=== PATIENT | female | born 1960 | race Hispanic/Latino ===

== ENCOUNTER 2023-03-29 10:42 | Outpatient (CLI) | payer MEDICAID, SELFPAY ==
--- NOTE | ~2023-03-29 | XR_ITS ---
EXAM: XR hand RT min 3V DATE: 03/29/2023 11:12 HISTORY: PAIN IN RIGHT HAND, NO INJURY, CHRONIC . COMPARISON: None available. FINDINGS: Normal mineralization. No fracture or dislocation. No lytic or blastic lesion. Mild scatte red arthritic changes, typical of osteoarthritis, most notably in the DIP joints of the fingers, the interphalangeal joint of the thumb, the first MCP joint, and the trapeziometacarpal joint. No erosion or periosteal change. Soft tissues within normal limits. IMPRESSION: Mild polyarticular osteoarthritis. Reviewed, dictated and finalized at location K. DEVELOPER PROGRAMMER
--- NOTE | ~2023-03-29 | XR_ITS ---
XR knee LT 3V 03/29/2023 11:12 INDICATION: Left knee pain PROCEDURE: 3 views left knee COMPARISON: No prior studies for comparison. FINDINGS: Fracture, dislocation or subluxation is not identified. No joint effusion. The soft tissues appear within normal limits. No foreign bodies are identified. IMPRESSION: 1: NO ACUTE BONE OR JOINT ABNORMALITY IDENTIFIED. Reviewed, dictated and finalized at location L. [employer]
== END 2023-03-29 10:43 | disposition home or self-care (01) ==
PROVIDERS: PCP Physician Assistant; Visit Provider Physician Assistant
DX: M19.041 Primary osteoarthritis, right hand (principal); M25.562 Pain in left knee
CPT/HCPCS: 73130; 73562

== ENCOUNTER 2023-08-31 09:52 | Outpatient (CLI) | payer OTHER, SELFPAY ==
[2023-08-31 10:50] LABS: Cholesterol 208 mg/dL (0-200); HDL Direct 49 mg/dL; Triglycerides 103 mg/dL (<150)
[2023-08-31 11:00] LABS: LDL Cholesterol Direct 128 mg/dL
== END 2023-08-31 09:53 | disposition home or self-care (01) ==
PROVIDERS: PCP Physician Assistant; Visit Provider Internal Medicine Cardiovascular Disease
DX: E78.5 Hyperlipidemia, unspecified (principal)
CPT/HCPCS: 36415; 80061

== ENCOUNTER 2023-10-05 08:35 | Outpatient (CLI) | payer OTHER, SELFPAY ==
--- NOTE | 2023-10-05 08:38 | ECHO_ITS ---
Patient Info Name: Emmy Bautista Age: 62 years : 1960 Gender: Female Ht: 67 in Wt: 170 lbs BSA: 1.92 m2 HR: 64 bpm BP: 151 / 79 mmHg Technical Quality: Good Exam Date: 10/05/2023 8:56 AM Exam Location: Echo Lab Patient Status: Outpatient Admit Date: 10/05/2023 Staff Ordering Physician: Christos Montenegro DO Computer Support Specialist Instructor: Jameel Chance RDCS Attending Provider: Christos Montenegro DO Referring Physician: Lan SCHROEDER; Exam Type: CA echo doppler color flow Study Info Indications R06.09 - Other forms of dyspnea Complete two-dimensional, color flow and Doppler transthoracic echocardiogram is performed. Summary 1. Complete two-dimensional, color flow and Doppler transthoracic echocardiogram is performed. 2. Left ventricular chamber dimension is normal. 3. Left ventricular systolic function is normal, estimated at 60-65%. 4. The left ventricular diastolic function is normal. 5. E/e' 5 is not elevated. 6. Left atrial chamber dimension is mildly enlarged. 7. There is trace mitral valve regurgitation. 8. There is trace tricuspid valve regurgitation. 9. No pulmonary hypertension, estimated pulmonary arterial systolic pressure is 21 mmHg. Left Ventricle E/e' 5 is not elevated. Left ventricular chamber dimension is normal. Left ventricular systolic function is normal, estimated at 60-65%. The left ventricular diastolic function is normal. Right Ventricle Right ventricular systolic function is normal and with normal TAPSE 1.8 cm. Right ventricular chamber dimension is normal. Left Atria Left atrial chamber dimension is mildly enlarged. Right Atria Right atrial chamber dimension is normal. Aortic Valve The aortic valve is trileaflet. There is no aortic valve stenosis. There is no aortic valve regurgitation. Pulmonic Valve There is no pulmonic regurgitation. Mitral Valve There is no mitral valve stenosis. There is trace mitral valve regurgitation. Tricuspid Valve There is trace tricuspid valve regurgitation. No pulmonary hypertension, estimated pulmonary arterial systolic pressure is 21 mmHg. Pericardium/Pleural There is no pericardial effusion. Inferior Vena Cava Normal inferior vena cava with >50% collapse upon inspiration consistent with normal right atrial pressure, 5 mmHg. Aorta The aortic root size at the sinus of Valsalva is normal. Left Ventricular Outflow Tract Name Value Normal LVOT 2D LVOT Diameter 2.2 cm LVOT Doppler LVOT Peak Gradient 4 mmHg LVOT Mean Gradient 2 mmHg LVOT VTI 23 cm LVOT VTI/AV VTI Ratio 0.9 LVOT Stroke Volume 87 ml LVOT CO 5.4 l/min LVOT CI 2.8 l/min/m2 Pulmonic Valve Name Value Normal PV Doppler PV Peak Gradient 4 mmHg Mitral Valve
--- NOTE | 2023-10-05 09:05 | EST_ITS ---
Patient Info Name: Emmy Bautista Age: 62 years : 1960 Gender: Female Ht: 67 in Wt: 170 lbs BSA: 1.92 m2 HR: 59 bpm BP: 135 / 84 mmHg Heart Rhythm: Sinus Rhythm Exam Date: 10/05/2023 9:59 AM Exam Location: Echo Lab Patient Status: Outpatient Admit Date: 10/05/2023 Staff Ordering Physician: Christos Montenegro DO Attending Provider: Christos Montenegro DO Exercise Technologist: Maria [address] Exercise Physician: Christos Montenegro DO Exam Type: CA stress test treadmill Study Info Indications R06.09 - Other forms of dyspnea A treadmill exercise stress test was performed. Summary 1. 1. Negative Donn exercise stress test for ischemic ST changes by ECG criteria. 2. 2. Good functional capacity, achieving 8 METs of workload. 3. 3. Appropriate HR response to exercise. 4. 4. Appropriate HR recovery at 1 minute post exercise. 5. 5. No imaging with stress testing. 6. 6. Patient informed of the above results. Protocol: Donn Stress ECG Details Stage: REST Duration (min): 0 min : 56 sec Speed (mph): 0.0 Grade (%): 0 HR (bpm): 60 SBP (mmHg): 135 DBP (mmHg): 84 METS: --- Stage: REST Duration (min): 18 min : 33 sec Speed (mph): 0.0 Grade (%): 0 HR (bpm): 64 SBP (mmHg): 135 DBP (mmHg): 84 METS: --- Stage: STAGE 1 Duration (min): 1 min : 0 sec Speed (mph): 1.7 Grade (%): 10 HR (bpm): 89 SBP (mmHg): 135 DBP (mmHg): 84 METS: --- Stage: STAGE 1 Duration (min): 2 min : 0 sec Speed (mph): 1.7 Grade (%): 10 HR (bpm): 99 SBP (mmHg): 135 DBP (mmHg): 84 METS: --- Stage: STAGE 1 Duration (min): 3 min : 0 sec Speed (mph): 1.7 Grade (%): 10 HR (bpm): 100 SBP (mmHg): 171 DBP (mmHg): 71 METS: --- Stage: STAGE 2 Duration (min): 1 min : 0 sec Speed (mph): 2.5 Grade (%): 12 HR (bpm): 109 SBP (mmHg): 171 DBP (mmHg): 71 METS: --- Stage: STAGE 2 Duration (min): 2 min : 0 sec Speed (mph): 2.5 Grade (%): 12 HR (bpm): 114 SBP (mmHg): 185 DBP (mmHg): 64 METS: --- Stage: STAGE 2 Duration (min): 3 min : 0 sec Speed (mph): 2.5 Grade (%): 12 HR (bpm): 117 SBP (mmHg): 185 DBP (mmHg): 64 METS: --- Stage: STAGE 3 Duration (min): 0 min : 59 sec Speed (mph): 3.4 Grade (%): 14 HR (bpm): 135 SBP (mmHg): 184 DBP (mmHg): 70 METS: --- Stage: RECOVERY Duration (min): 1 min : 0 sec Speed (mph): 0.0 Grade (%): 0 HR (bpm): 109 SBP (mmHg): 184 DBP (mmHg): 70 METS: --- Stage: RECOVERY Duration (min): 2 min : 0 sec Speed (mph): 0.0 Grade (%): 0 HR (bpm): 85 SBP (mmHg): 184 DBP (mmHg): 70 METS: --- Stage: RECOVERY Duration (min): 3 min : 0 sec Speed (mph): 0.0 Grade (%): 0 HR (bpm): 75 SBP (mmHg): 163 DBP (mmHg): 80 METS: --- Stage: RECOVERY Duration (min): 3 min : 19 sec Speed (mph): 0.0 Grade (%): 0 HR (bpm): 81 SBP (mmHg): 163 DBP (mmHg): 80 METS:
== END 2023-10-05 08:36 | disposition home or self-care (01) ==
LOC: ANHCARD 08:36
PROVIDERS: PCP Physician Assistant; Visit Provider Internal Medicine Cardiovascular Disease
DX: R07.9 Chest pain, unspecified (principal)
CPT/HCPCS: 93017; 93306

== ENCOUNTER 2024-09-16 11:09 | Emergency (ER) | payer OTHER, SELFPAY ==
--- NOTE | ~2024-09-16 | CT_ITS ---
Non-contrast Head CT History: Vertigo Technique: Axial non-contrast imaging of the brain was performed. Dose reduction technique was used on this scan by utilizing automated exposure control and iterative reconstruction technique. The dose -length product (DLP) was 605.33 mGy-cm. Findings: There is no evidence of intracranial hemorrhage, mass lesion, or acute infarct. Brain par enchyma appears normal. The ventricles and subarachnoid spaces are normal in size. The calvarium ap pears normal. The visualized paranasal sinuses and mastoid air cells are clear. Impression: No significant abnormality seen. Reviewed, dictated and finalized at location . Impression: No significant abnormality seen.
--- NOTE | ~2024-09-16 | XR_ITS ---
Portable chest x-ray Comparison: None Clinical History: Dizziness Findings: Lungs are clear, without focal consolidation or pleural effusion. Cardiomediastinal silho uette is unremarkable. Bones and soft tissues are unremarkable. Impression: Normal chest. Reviewed, dictated and finalized at location . Impression: Normal chest.
--- OUTSIDE RECORDS SUMMARY | 2024-09-16 11:11 | XMS_ITS | Data Portability ---
Author Organization [facility] Jono Michele Address [address] [place] [address] Care Team Providers Care Buckle Inspector Name Role Phone MAKAYLAELIO RICHARDS Primary Care Provider [phone] Assessment No assessment recorded. Plan of Treatment Reminders Order Date Submit Date Provider Last Modified By Organization Details Last Modified Time Details Appointments None recorded . Lab HbA1c (hemoglo bin A1c), blood 2024 025 [facility], [address] [place] [address], [facility] [address], [place], [address], 5 11:27:46 CMP, serum or plasma 2024 025 mick [facility], [address] [place] [address], [address], [place], [address], 5 08:49:33 TSH + free T4, serum 2024 025 SHIRLENE [facility], [address] [place] [address], [facility] [address], [place], [address], 5 11:27:45 CMP, serum or plasma 2023 024 SHIRLENE VERONIKA, [address] [place] [address], [address], [place], [address], 4 23:07:41 albumin/ creatini ne, mass ratio, urine 2023 024 [facility], [address] [place] [address], [facility] [address], [place], [address], 4 08:29:56 HbA1c (hemoglo bin A1c), blood 2023 024 [facility], [address] [facility], [address], [place], [address], 4 08:29:59 TSH + free T4, serum 2023 024 [facility], [address] [facility], [address], [place], [address], 4 08:29:58 Referral neurolog ist referral 2024 025 [facility], [address] [place] [address] , [place] [address], [place], [address], 5 11:45:18 Procedures None recorded . Surgeries None recorded . Imaging MAMMO, screenin g, bilatera l 2024 025 [facility] ([facility]), [address] [place], [address], 5 12:28:49 Medication Orders losartan 100 mg tablet 2023 024 [facility], [facility] [place], [id number], 5 17:25:47 famotidi ne 20 mg tablet 2023 024 [facility], [facility] [place], [id number], 5 17:38:15 venlafax ine ER 75 mg capsule, extended release 24 hr 2023 024 [facility] [employer] [facility], [facility] [place], [id number], 5 16:11:14 levothyr oxine 75 mcg tablet 2023 024 [facility] [employer] [facility], [address] [place], [place], [id number], 11:39:29 Patient TargetsNo targets recorded. Patient Instructions Encounter Date Encounter Id Patient Instructions Last Modified By Organization Details Last Modified Time 07/25/2024 [id number] A healthy lifestyle: care instructions [email or web address] Not available 07/25/2024 17:08:10 Reason for Referral Neurologist Referral for Idi opathic peripheral neuropathy Referring Physician: Antony Davis, Podiatry, Encounter Date: 08/08/2024 Results Created Date Observation Date Name Description Value Unit Range Abnormal Flag Note LastModifiedBy Organization Detail LastModifiedTime 01/26/2001/27/2024 COMP. METAB OLIC PANEL (14) glucose 98 mg/dL 70-99 Not Available [facility] Department [address] [place], [address], 01/27/2024 23:07:41 01/26/2001/27/2024 COMP. METAB OLIC PANEL (14) BUN 16 mg/dL 8-27 Not Available [facility] Department [address] [place], [address], 01/27/2024 23:07:41 01/26/2001/27/2024 COMP. METAB OLIC PANEL (14) creatinine 0.71 mg/dL 0.76-1 .27 below low normal Not Available [facility] Department [address] [place], [address], 01/27/2024 23:07:41 01/26/2001/27/2024 COMP. METAB OLIC PANEL (14) eGFR 96 >=60 Units for eGFR value s are mL/mi n/1.7 3 The eGFR Calcu latio n has not been valid ated for patie nts under the age of 18. If test resul ts are displ ayed for a patie nt under the age of 18, disre manas that value . Not Available [facility] Department [address] [place] [address], [address], 01/27/2024 23:07:41 01/26/2001/27/2024 COMP. METAB OLIC PANEL (14) BUN/creatini ne ratio 23 10-28 Not Available [facility] Department [address] [place], [address], 01/27/2024 23:07:41 01/26/2001/27/2024 COMP. METAB OLIC PANEL (14) sodium 140 mmol/ L 134-14 4 Not Available [facility] Department [address] [place] [address], [address], 01/27/2024 23:07:41 01/26/2001/27/2024 COMP. METAB OLIC PANEL (14) potassium 5.2 mmol/ L 3.5-5. 2 Not Available [facility] Department [address] [place] [address], [address], 01/27/2024 23:07:41 01/26/2001/27/2024 COMP. METAB OLIC PANEL (14) chloride 102 mmol/ L 96-106 Not Available [facility] Department [address] [place] [address], [address], 01/27/2024 23:07:41 01/26/2001/27/2024 COMP. METAB OLIC PANEL (14) carbon dioxide, total 28 mmol/ L 20-29 Not Available [facility] Department [address] [place], [address], 01/27/2024 23:07:41 01/26/2001/27/2024 COMP. METAB OLIC PANEL (14) calcium 9.6 mg/dL 8.7-10 .3 Not Available [facility] Department [address] [place] [address], [address], 01/27/2024 23:07:41 01/26/2001/27/2024 COMP. METAB OLIC PANEL (14) protein, total 7.2 g/dL 6.0-8. 5 Not Available [facility] Department [address] [place] [address], [address], 01/27/2024 23:07:41 01/26/2001/27/2024 COMP. METAB OLIC PANEL (14) albumin 4.5 g/dL 3.8-4. 8 Not Available [facility] Department [address] [place], [address], 01/27/2024 23:07:41 01/26/2001/27/2024 COMP. METAB OLIC PANEL (14) globulin, total 2.7 g/dL 1.5-4. 5 Not Available [facility] Department [address] [place] [address], [address], 01/27/2024 23:07:41 01/26/2001/27/2024 COMP. METAB OLIC PANEL (14) A/G ratio 1.6 1.2-2. 2 Not Available [facility] Department [address] [place], [address], 01/27/2024 23:07:41 01/26/2001/27/2024 COMP. METAB OLIC PANEL (14) bilirubin, total 0.4 mg/dL 0.0-1. 2 Not Available [facility] Department [address] [place], [address], 01/27/2024 23:07:41 01/26/2001/27/2024 COMP. METAB OLIC PANEL (14) alkaline phosphatase 77 IU/L 44-121 Not Available [facility] Department [address] [place], [address], 01/27/2024 23:07:41 01/26/2001/27/2024 COMP. METAB OLIC PANEL (14) AST (SGOT) 21 IU/L 0-40 Not Available [facility] Department [address] [place], [address], 01/27/2024 23:07:41 01/26/2001/27/2024 COMP. METAB OLIC PANEL (14) ALT (SGPT) 21 IU/L 0-32 Not Available [facility] Department [address] [place], [address], 01/27/2024 23:07:41 01/26/2001/28/2024 ALBUM IN/CR EATIN INE RATIO ,URIN E creatinine, urine 28.6 mg/dL notest ab. Not Available [facility] ([facility]) [address] [place], [address], 01/28/2024 08:29:56 01/26/2001/28/2024 ALBUM IN/CR EATIN INE RATIO ,URIN E albumin, urine <3.0 ug/mL notest ab. Not Available [facility] ([facility]) [address] [place], [address], 01/28/2024 08:29:56 01/26/2001/28/2024 ALBUM IN/CR EATIN INE RATIO ,URIN E alb/creat ratio <10 Jackie l: 0 - 29 Moder ately incre ased: 30 - 300 Sever gail incre ased: >300 Not Available [facility] ([facility]) [address] [place], [address], 01/28/2024 08:29:56 01/26/2001/28/2024 TSH+F REE T4 TSH 1.290 uIU/m L 0.450- 4.500 Not Available [facility] ([facility]) [address] [place], [address], 01/28/2024 08:29:58 01/26/2001/28/2024 TSH+F REE T4 T4,free(dire ct) 1.19 NG/dL 0.82-1 .77 Not Available [facility] ([facility]) [address] [place], [address], 01/28/2024 08:29:58 01/26/2001/28/2024 HEMOG LOBIN A1C hemoglobin A1C 5.9 % 4.8-5. 6 above high normal Predi abete s: 5.7 - 6.4 Diabe bryn: >6.4 Glyce ankur contr ol for adult s with diabe bryn: <7.0 Not Available [facility] ([facility]) [address] [place], [address], 01/28/2024 08:29:59 07/26/1907/27/2024 TSH+F REE T4 TSH 0.985 uIU/m L 0.450- 4.500 Not Available [facility] ([facility]) [address] [place], [address], 07/27/2024 11:27:45 07/26/19 25 07/27/2024 TSH+F REE T4 T4,free(dire ct) 1.13 NG/dL 0.82-1 .77 Not Available [facility] ([facility]) [address] [place], [address], 07/27/2024 11:27:45 07/26/1907/27/2024 HEMOG LOBIN A1C hemoglobin A1C - % Test not perfo rmed. No laven cecilia top tube submi tted. Predi abete s: 5.7 - 6.4 Diabe bryn: >6.4 Glyce ankur contr ol for adult s with diabe bryn: <7.0 Not Available [facility] ([facility]) [address] [place], [address], 07/27/2024 11:27:46 08/14/19 25 08/10/2024 MAMMO , scree pete, bilat eral No observ ation record ed. [facility] Central Scheduling [address], [place], [address], 08/22/2024 12:28:49 08/14/19 25 08/10/2024 MAMMO , scree pete, tomos ynthe sis, bilat eral No observ ation record ed. [email or web address] - Central Scheduling [address], [place], [address], 08/14/2024 16:07:22 Result Notes None recorded. Problems Name Problem SNOMED Code Status Onset Date Resolution Date Notes Provider Name and Address Organization Details Recorded Time Body mass index 25-29 - overweig ht 970370225 Active 2016 TARIK [place], [place] - [facility] 12:06:26 Verruca vulgaris 35278504 Active 2016 TARIK [place] [facility] 12:06:26 Snoring 27509403 Active TARIK [place] [facility] 12:06:26 Nasal congesti on 13480052 Completed 201710/27/2018 PRADEEP FRANCIS Attn: Maribeljuan carlos servando,[address] [facility], [place], [address], [facility] - SI 9 14:57:29 Benign paroxysm al position al vertigo 646179985 Active 2017 TARIK [place], [place] [facility] 12:06:26 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 Tx with levothyr oxine 50 mcg, TSH mildly elevated 11/06/18, need to recheck again in 6 months TARIK [place] [facility] 12:06:26 Mean corpuscu lar volume below referenc e range 274806684 Active 2019 TARIK [place] [facility] 12:06:26 Beta thalasse lucien trait 169908475 Active 2020 TARIK [place], [place] [facility] 12:06:26 [facility] 376294478 Active 2020 Val Tao [place] null, [place] [facility] 12:06:26 Bruxism 179070537 Active 2021 PRADEEP HUGO Attn: Alvina al,[address] [facility], [place], [address], [place] - [facility] 2 17:24:57 Grinding teeth 14888596 Active 2021 PRADEEP HUGO Attn: Alvina servando,[address] [facility], [place], [address], [place] [facility] 17:24:57 Pain of bilatera l hands 37076926091 653586 Active 2021 PRADEEP HUGO Attn: Alvina al,[address] [facility], [place], [place], [address] [place] [address] 2, [place] [facility] 17:25:52 Anxiety 56135014 Active 2021 PRADEEP HUGO Attn: Alvina al,[address] [facility], [place], [address] [place] [address] 2, [place] [facility] 17:25:54 Menopaus e present 713329526 Active 2021 PRADEEP HUGO Attn: Alvina al,[address] [facility], [place], [address] [place] [address] 2, [place] [facility] 17:25:56 Essentia l hyperten sadiq 93102940 Active 2021 PRADEEP HUGO Attn: Alvina al,[address] [facility], [place], [address] [place] [address] 2, [place] - [facility] 2 17:26:00 Colonosc opy declined 64429475703 9100 Active 2021 PRADEEP HUGO Attn: Alvina al,[address] [facility], [place], [address] [place] [address] 2, [place] - [facility] 2 17:26:04 Smoker 52662801 Active 2022 PRADEEP HUGO Attn: Alvina al,[address] [facility], [place], [address] [place] [address] 2, [place] - [facility] 3 16:23:34 Nocturia 917754324 Active 2022 PRADEEP HUGO Attn: Alvina al,[address] [facility], [place], [address] [place] [address] 2, [place] - [facility] 3 16:24:28 Pain of left knee joint 70622302994 4107 Active 2023 PRADEEP HUGO Attn: Alvina al,[address] [facility], [place], [address] [place] [address] 2, [place] - [facility] 4 15:32:20 Overweig ht 488666115 Active 2023 PRADEEP HUGO Attn: Alvina al,[address] [facility], [place], [address], [place] [facility] 4 15:32:34 Prediabe bryn 202716811 Active 2023 PRADEEP HUGO Attn: Alvina al,[address] [facility], [place], [address], [place] [facility] 4 08:55:30 Fatigue 65751210 Active Val Tao [place] [facility] 1 12:06:26 Vitamin D deficien cy 78856190 Active Val Tao [place] [facility] 1 12:06:25 Full blood count outside referenc e range 600135732 Completed 10/27/2018 PRADEEP FRANCIS Attn: Alvina al,[address] [place], [address], [place] [facility] 9 14:57:03 Hyperthy roidism 30758705 Active Currentl y hypo and txed by endo Val Tao [place], [place] [facility] 1 12:06:26 Depressi ve disorder 54038408 Active Shanonvincentnorberto TARIK Tao nuvia, [facility] SI 12:06:26 Hyperlip idemia 58331987 Active Controll ed by lifestyl e, no need for med currentl y Val Aislinn TARIK nuvia, [facility] SI 12:06:26 Gastroes ophageal reflux disease 356878187 Active Shanonvincentnorberto TARIK Tao nuvia, [facility] 12:06:26 Tobacco dependen ce syndrome 42526369 Active 2016 Shanonvincentnorberto TARIK Tao nuvia, [facility] 12:06:25 Problem Notes None recorded. Procedures Surgical History Date Name Laterality Status Provider Name and Address Organization Details Recorded Time 024 Nail Debridement completed FELICE RAI DPM [address] [place], [address], [facility] 09/15/2023 17:26:07 022 Date of Last Pap Smear completed Leilani Meraz MA [facility] 02/23/2022 10:00:48 022 Date of Last Mammogram completed Leilani Meraz MA [facility] 02/23/2022 10:01:12 017 Most Recent Mammogram completed Marcella Arredondo MA [facility] 11/25/2017 09:52:39 Cholecystectomy completed Radha Mcgrath MA [facility] 02/18/2016 16:30:48 Cholecystectomy completed Edinson Rose [place] - [facility] 03/19/2014 15:09:10 Other completed Marcella Arredondo MA [place] - [facility] 11/25 09:58:21 Imaging Results None recorded. Procedure Notes None recorded. Medical Equipment None Reported. Allergies No known drug allergies Medications Name Sig Start Date Stop Date Status Note LastModified by Organization Details LastModified Time bupropion HCl SR 150 mg tablet,12 hr sustained -release TAKE ONE TABLET BY MOUTH TWICE DAILY 03/24 completed Not Available Not Available Not Available venlafaxi ne ER 37.5 mg capsule,e xtended release 24 hr TAKE 1 CAPSULE BY MOUTH DAILY 02/18 completed Not Available Not Available Not Available venlafaxi ne ER 75 mg capsule,e xtended release 24 hr TAKE ONE CAPSULE BY MOUTH ONCE EVERY DAY FOR ANXIETY active Not Available Not Available No t Available levothyro xine 75 mcg tablet TAKE 1 TABLET by mouth DAILY IN THE MORNING BEFORE BREAKFAS T FOR THYROID. active Not Available Not Available No t Available ciclopiro x 8 % topical solution APPLY TO THE AFFECTED AREA(S) DAILY AT BEDTIME OR ocho horas antes de dipak 09/16 completed Not Available Not Available Not Available levothyro xine 100 mcg tablet Take 1 tablet every day by oral route in the morning. 2014 active Not Available Not Available Not Avai lable famotidin e 20 mg tablet TAKE ONE TABLET BY MOUTH TWICE DAILY EVERY MORNING AND EVERY EVENING FOR STOMACH active Not Available Not Available No t Available ciproflox acin 0.3 % eye drops INSTILL 1 DROP INTO LEFT EYE 4 TIMES DAILY FOR 5 DAYS active Not Available Not Available No t Available amitripty line 10 mg tablet Take 1 tablet every day by oral route at bedtime. 08/19 completed Not Available Not Available Not Available meclizine 25 mg tablet Take 1 tablet 3 times a day by oral route as needed. 08/08 completed Not Available Not Available Not Available levothyro xine 50 mcg tablet TAKE 1 TABLET BY MOUTH EVERY DAY fasting 10/22 completed Not Available Not Available Not Available erythromy beatris 5 mg/gram (0.5 %) eye ointment APPLY 1/4 INCH RIBBON OF OINTMENT INTO LOWER LID OF LEFT EYE 4 TIMES DAILY FOR 5 DAYS active Not Available Not Available No t Available levothyro xine 125 mcg tablet Take 1 tablet every day by oral route. active Rx by Dr. Lucero endo Not Available Not Available Not Available ranitidin e 150 mg tablet Take 1 tablet twice a day by oral route as needed. 04/13 completed Not Available Not Available Not Available losartan 25 mg tablet TAKE ONE TABLET BY MOUTH EVERY MORNING 05/06 completed Not Available Not Available Not Available gabapenti n 300 mg capsule TAKE ONE CAPSULE BY MOUTH THREE TIMES DAILY, IN THE MORNING, AT MID-DAY & AT BEDTIME FOR PAIN MANAGEME NT active Not Available Not Available No t Available omeprazol e 20 mg capsule,d elayed release TAKE 1 CAPSULE BY MOUTH ONCE DAILY DIRECTED 08/20 completed Not Available Not Available Not Available lisinopri l 5 mg tablet TAKE 1 TABLET BY MOUTH ONCE DAILY IN THE MORNING 09/19 completed Dry cough Not Available Not Available Not Available gabapenti n 100 mg capsule Take 1 capsule 3 times a day by oral route as needed for 30 days. 01/10 completed Not Available Not Available Not Available ergocalci ferol (vitamin D2) 1,250 mcg (50,000 unit) capsule Take 1 capsule every week by oral route. 01/23 completed Not Available Not Available Not Available losartan 100 mg tablet TAKE ONE TABLET BY MOUTH EVERY MORNING FOR BLOOD PRESSURE active Not Available Not Available No t Available fluoxetin e 20 mg capsule Take 1 capsule every day by oral route in the morning for 30 days. 04/13 completed Not Available Not Available Not Available fluticaso ne propionat e 50 mcg/actua tion nasal spray,salvador pension INSTILL 1 SPRAY IN EACH NOSTRIL ONCE DAILY AT BEDTIME FOR ALLERGIE S active Not Available Not Available No t Available Vitamin B-12 1,000 mcg tablet Take 1 tablet every day by oral route around the clock for 30 days. 08/08 completed Not Available Not Available Not Available magnesium active Not Available Not Loraine ilable Not Available calcium 600 mg (as carbonate )-vitamin D3 10 mcg (400 unit) tablet Take 1 tablet by oral route for 30 days. 2021 active Not Available Not Available Not Avai lable Chantix Continuin g Month Box 1 mg tablet Take 1 tablet twice a day by oral route. 11/25 completed Not Available Not Available Not Available Chantix Starting Month Box 0.5 mg (11)-1 mg (42) tablets in dose pack Take as prescrib ed on package 11/25 completed Not Available Not Available Not Available bupropion HCl 150 mg tablet,12 hr sustained -release( smoking deterrent ) Take 1 tablet twice a day by oral route for 90 days. 03/24 completed Not Available Not Available Not Available Vitals Date Recorded Body height Body mass index (BMI) Body weight Heart rate Body temperature Systolic blood pressure Diastolic blood pressure Provider Name and Address Organization Details Last Updated DateTime 5 172.09 cm 26.2 kg/m2 44565.6 5 g 73 /min 97.8 [degF] 146 mm[Hg] 80 mm[Hg] Silvana Young MA [facility] 5 15:56:05 Date Recorded Body height Body mass index (BMI) Body weight Heart rate Body temperature Systolic blood pressure Diastolic blood pressure Provider Name and Address Organization Details Last Updated DateTime 5 172.09 cm 25.2 kg/m2 81111.5 9 g 74 /min 98.4 [degF] 124 mm[Hg] 84 mm[Hg] Silvana Young MA [facility] 5 16:49:29 Date Recorded Body height Body mass index (BMI) Body weight Heart rate Oxygen saturation Oxygen saturation in Arterial blood by Pulse oximetry Systolic blood pressure Diastolic blood pressure Provider Name and Address Organization Details Last Updated DateTime 5 172.09 cm 26.5 kg/m2 34543.4 8 g 79 /min 98 % 98 % 128 mm[Hg] 70 mm[Hg] Melita Casper MA [facility] 5 16:55:09 Date Recorded Body height Body mass index (BMI) Body weight Heart rate Body temperature Systolic blood pressure Diastolic blood pressure Provider Name and Address Organization Details Last Updated DateTime 5 172.09 cm 26.1 kg/m2 71593.7 8 g 89 /min 98.3 [degF] 130 mm[Hg] 72 mm[Hg] Silvana Young MA [facility] 5 16:17:45 Date Recorded Systolic blood pressure Diastolic blood pressure Provider Name and Address Organization Details Last Updated DateTime 01/26/2024 132 mm[Hg] 76 mm[Hg] PRADEEP HUGO Attn: Accounting,[address] [place], [address], [facility] 01/26/2024 17:14:35 Date Recorded Body height Body mass index (BMI) Body weight Heart rate Oxygen saturation Oxygen saturation in Arterial blood by Pulse oximetry Provider Name and Address Organization Details Last Updated DateTime 4 172.09 cm 26.5 kg/m2 98158.4 8 g 87 /min 96 % 96 % Italia Sánchez MA [facility] 16:57:42 Social History Question Answer Notes LastModified by Organizat ion Details LastModified Time Tobacco Smoking Status Current Every Day Smoker Around 6 ciggs a day Melita Casper MA [facility], [facility] 01/23/2021 15:54:49 Do You Have An Advance Directive? No Information not available 02/18/2016 Is Blood Transfusion Acceptable In An Emergency? Yes Information not available 11/25/2017 What Is Your Level Of Caffeine Consumption? Occasional Information not available 03/19/2014 How Much Tobacco Do You Chew? None Information not available 02/18/2016 In The 14 Days Before Symptom Onset, Have You Had Close Contact With A Laboratory-confir med COVID-19 While That Case Was Ill? No Information not available 08/08/2020 In The 14 Days Before Symptom Onset, Have You Had Close Contact With A Person Who Is Under Investigation For COVID-19 While That Person Was Ill? No Information not available 08/08/2020 Have You Been To An Area Known To Be High Risk For COVID-19? No Information not available 08/08/2020 What Type Of Diet Are You Following? REGULAR Information not available 11/25/2017 Which Illicit Or Recreational Drugs Have You Used? None Information not available 11/25/2017 Education 9 Information no t available 11/25/2017 Hard Of Hearing Or Deaf In One Or Both Ears? No Information not available 02/18/2016 Legally Blind In One Or Both Eyes? No Information no t available 02/18/2016 Live Alone Or With Others? With Others Information not available 03/19/2014 Do You Have A High School Diploma Or Higher Education? Yes Information not available 08/08/2020 Do You Sometimes Have To Miss Your Medical Appointments Due To Difficult Getting Transportation? No Information not available 08/08/2020 Do You Feel Unfairly Treated Due To Things Such As Race, Age, Gender, Disability Or Some Other Reason? No Information not available 08/08/2020 Do You Feel Physically And Emotionally Safe While Living At Home? Yes Information not available 08/08/2020 Do You Feel Physically And Emotionally Safe In Your Neighborhood Or Other Public Places? Yes Information not available 08/08/2020 What Was The Date Of Your Most Recent Tobacco Screening? 08/08/2024 Information not available 08/08/2024 How Many Children Do You Have? 3 [email or web address] Information not available 04/23/2015 Performs Monthly Self-breast Exam? No Information no t available 11/25/2017 Do You Use Protection During Sex? No Information not available 11/25/2017 What Is Your Relationship Status? Information not available 11/25/2017 Seat Belts Used Routinely Yes Information not available 02/18/2016 Are You Sexually Active? Yes Information not available 11/25/2017 Smoke Alarm In Home Yes Information not available 02/18/2016 Do You Have Smoke And Carbon Monoxide Detectors In Your Home? Yes Information not available 07/03/2021 At What Age Did You Start Smoking Tobacco? 16 Information not available 03/19/2014 Are You Passively Exposed To Smoke? Yes Information no t available 02/18/2016 How Much Tobacco Do You Smoke? 1 PPW Information not available 08/08/2020 General Stress Level Low Information not available 02/18/2016 Do You Use Sunscreen Routinely? No Information not available 02/18/2016 Has Tobacco Cessation Counseling Been Provided? Yes [email or web address] Information not available 10/27/2018 On What Date Was Tobacco Cessation Counseling Provided? 08/08/2024 Information not available 08/08/2024 Sex: Female Functional Status Question Answer Note LastModified by Organizat ion Details LastModified Time Do you use any illicit or recreational drugs? No Information not available 07/03/2021 What is your level of alcohol consumption? None Information not available 04/17/2021 Are you currently employed? Yes Information not available 08/08/2020 Are you able to care for yourself? Yes Information n ot available 03/19/2014 What is your occupation? [employer] Information not available 11/25/2017 What is your exercise level? None Information not available 11/25/2017 Mental Status None recorded. Family History Relationship Description Onset Age of this Age Resolved Age Notes LastModified by Organization Details LastModified Time Mother Diabetes mellitus [email or web address] Not available 2015 16:34:32 Mother Essential hypertension Not available 16:34:32 Sister Diabetes mellitus Not available 2015 16:34:32 Medical History Condition Response Other N Atrial Fibrillation N High Blood Pressure N Breast Cancer N Lung Disease N Depression Y COPD N Blood Clots N Breast Problem N Anesthesia Complications N Headaches/Migraines N Anxiety Disorder N Muscle, Joint, or Bone Problems N Polyps N Infertility N Acid Reflux (GERD) Y Cancer N Endometriosis N High Cholesterol Y Liver Disease N Headaches Y Kidney or Bladder Problems N Thyroid Problems N GI Problems N Acne N Eating Disorder N Anemia Y Heart Attack (CA) N Ovarian Cancer N Diabetes N Blood Transfusions N Seizures/Epilepsy N Abuse/Domestic Violence N Asthma N Hepatitis N Heart Disease N Pre-Eclampsia N Osteoporosis N Heart Failure N Gynecological History Statement/Question Response Date of Last Mammogram 11/06/2021 Date of LMP STIs/STDs N HPV Vaccine N Most Recent Mammogram 07/09/2016 Age at Menarche 13 Current Control Method Menopause Age at First Child 20 If Post Menopausal, Age at Menopause 49 Sexually Active? Y Menses Monthly No Date of Last Pap Smear 11/09/2021 Sexual Problems? N LMP Unknown Obstetrics History GPAL:G 4 P 3 0 1 3 Type Value Multiple Births 0 Full Term 3 Induced 0 Spontaneous 1 Premature 0 Living 3 Ectopics 0 Total 4 Immunizations Vaccine Type Date Status Note Provider Anderson bhatt and Address Organization Details Recorded Time COVID-19, mRNA, LNP-S, PF, 30 mcg/0.3 mL dose 1 completed Melita Casper [place] null, [place] - [facility] 08/17/2021 10:21:44 COVID-19, mRNA, LNP-S, PF, 30 mcg/0.3 mL dose 1 completed Melita Casper [place], [place] [facility] 08/17/2021 10:21:51 COVID-19, mRNA, LNP-S, PF, 30 mcg/0.3 mL dose 2 completed Melita Casper [place], [place] [facility] 08/17/2021 10:22:04 Pneumococcal conjugate PCV20, polysaccharide CPS804 conjugate, adjuvant, PF 5 completed Latasha Woo MA null, [place] - [facility] 07/25/2024 17:20:58 Past Encounters Encounter ID Performer Location Encounter Start Date Encounter Closed Date Diagnosis/Indication Diagnosis SNOMED-CT Code Diagnosis ICD10 Code Diagnosis Note [id number] [address] [place] [address] 03/19/2014 14:56:39 03/20/2014 11:45:22 Full blood count outside reference range [id number] I suspect this is related to thyroid disease. Will continue to monitor. Hyperthyroidism 98554262 She is to contact her endo to see if she needs adjustment to medication . Depressive disorder 96398915 Provide reassuranc e that I suspect her symptoms are related to both her thyroid condition and her family stress. I believe the Amitriptyl ine will help with the symptoms she is experienci ng. Gastroesop hageal reflux disease [id number] CHELSIE Hairston [address] [place] [address] 04/30/2014 13:47:41 04/30/2014 14:28:36 Hyperthyroidism 83503209 She is to contact her endo to see if she needs adjustment to medication . Gastroesop hageal reflux disease 995955569 Depressive disorder 98336324 Snoring [id number] MD Mer Alonso [address] [place] [address] 07/02/2014 16:28:28 07/02/2014 17:45:55 Gastroesophageal reflux disease 526287233 Depressive disorder 57672903 Hyperthyroidism 92003716 Our staff spoke with endocrinol ogist's office to verify POC. Verified that the last dose they had rxed was 112 mcg. Endocrinol ogist had left for the day, so we were given permission to decrease the dose and forward communicat ion to them. [id number] Primitivo Garza MD [place] [facility] [address] [place] [address] 08/20/2014 16:14:26 08/20/2014 16:54:42 Gastroesophageal reflux disease 877032237 Depressive disorder 22681069 Hyperthyroidism 29306755 Has an order from Dr. Lucero for TSH and T4 - will check today [id number] MD Kaylin Nielsen (Adult Med) [address] [place] [phone] 10/17/2014 15:48:48 10/17/2014 16:29:39 Hyperthyroidism 74980198 Has an order from Dr. Lucero for TSH and T4 - will check today Fatigue 35794023 Adult heal th examination [id number] MD Kaylin Nielsen (Adult Med) [address] [place] [id number] 12/11/2014 16:05:27 2014 11:33:54 Hyperthyroidism 52601186 Will check T4 and TSH today Spoke with patient that I would like Dr. Lucero to continue to manage her thyroid until it becomes stable - at that point I do not mind prescribin g the medication s if it is easier for her but I need her thyroid to be stable and no medication adjustment s occurring for 6 months before that is an option Full blood count outside reference range 556869475 [id number] MD Kaylin Nielsen (Adult Med) [address] [place] [address] 02/12/2015 15:59:14 02/13/2015 11:20:29 Hyperthyroidism 14547773 E05.90 Will check T4 and TSH today If thyroid stable will prescribe levothyrox ine. Discussed if not or if anything changes for her thyroid in the future I will have to go back to Dr. Lucero - she states that she was given the ok to have me prescribe the levothyrox ine [id number] MD Kaylin Nielsen (Adult Med) [address] [place] [address] 04/23/2015 09:04:27 04/23/2015 10:42:09 Gynecologic examination 70752431 Z01.411 Discussed the cervical protrusion with Dr. Mancia - will wait on pap smear results and then refer to Dr. Mancia for f/u - states that it is likely a cervical polyp Screening for malignant neoplasm of breast 950610212 Z12.39 Appointmen t schedule for next week [id number] [facility] [address] [place] [address] 05/28/2015 16:09:37 05/28/2015 16:57:13 Depressive disorder 65341857 F32.9 Restart amytriptyl ine Hyperthyroidism 82402611 E05.90 WIll give her one month today and she will RTC in one week to check thyroid Gastroesop hageal reflux disease 139372733 K21.9 [id number] Allyson Obando MD [facility] (Adult Med) [address] [place] [id number] 08/27/2015 15:48:05 08/27/2015 16:39:52 Hyperthyroidism 85372681 E05.90 Gastroesop hageal reflux disease 901478895 K21.9 Depressive disorder 3548 9007 F32.9 Continue amytriptyl ine Full blood count outside reference range 539009016 R79.9 Vitamin D deficiency 347 92685 E55.9 [id number] Allyson Obando MD [facility] (Adult Med) [address] [place] [address] 11/26/2015 15:47:57 11/26/2015 17:41:38 Hyperthyroidism 66982780 E05.90 Will recheck thyroid levels today Depending up levels will adjust medication or refer back to endo Gastroesop hageal reflux disease 639392043 K21.9 continue ranitidine Depressive disorder 3548 9007 F32.9 Continue amytriptyl ine PRN Full blood count outside reference range 786098234 R79.9 Vitamin D deficiency 347 63180 E55.9 [id number] [facility] [address] [place] [address] 02/18/2016 16:13:59 02/18/2016 16:58:12 Hyperthyroidism 18358280 E05.90 Currently hypoWill recheck thyroid levels today Depending up levels will adjust medication or refer back to endo If WNL, RTC 6 months Screening for malignant neoplasm of colon 360944920 Z12.11 Patient advised to complete in 04/2016 Vitamin D deficiency 347 43560 E55.9 WNL at last check Gastroesop hageal reflux disease 044307247 K21.9 continue ranitidine Depressive disorder 3548 9007 F32.9 Continue amytriptyl ine PRN [id number] APOLINAR Samuels NP [facility] [address] [place] [address] 07/02/2016 14:32:14 07/05/2016 09:34:53 Screening for malignant neoplasm of breast 048361261 Z12.31 Breast exam negative. Discussed self breast exams monthly. Order for bilateral screening mammogram given to patient. F/u as needed. [id number] MD Kaylin Hastings (Adult Med) [address] [place] [address] 08/19/2016 16:26:21 08/19/2016 18:00:33 Hyperthyroidism 47821768 E05.90 Currently hypoWill recheck thyroid levels todayDepen ding up levels will adjust medication or refer back to endo If WNL, RTC 6 months Patient advised to use Eucerin cream for dry skin - or something similar that is non-fragra nce Tobacco de pendence syndrome 79025988 F17.290 Will initiate wellbutrin 150mg BIDEncoura charly to quit smoking in her car and house first Vitamin D deficiency 347 32196 E55.9 WNL at last check Depressive disorder 3548 9007 F32.9 No screen time within an hour of bedNo caffeine close to bed timeTalked about good sleep hygeine and going to bed at the same time every night and waking up at the same time every morningFin d calming activies to do at night like crafting, reading, meditation [id number] MD Kaylin Amanda (Adult Med) [address] [place] [address] 03/08/2017 15:51:56 03/09/2017 09:35:21 Hyperthyroidism 62109573 E05.90 Currently hypoWill recheck thyroid levels todayDepen ding up levels will adjust medication or refer back to endo If WNL, RTC 6 months Patient advised to use Eucerin cream for dry skin - or something similar that is non-fragra nce Tobacco de pendence syndrome 39860549 F17.200 Gastroesop hageal reflux disease 191539674 K21.9 continue ranitidine Vitamin D deficiency 347 97686 E55.9 WNL at last check Hyperlipidemia 06702348 E78.2 WIll recheck at next visit Body mass index 25-29 - overweight 827417168 Z68.26 Advised 30 minutes of exercise 5 days/week Advised to not drink her calories Advised 3 balanced meals/day with plenty of fruits and vegetables Will check fasting labs at next visit Verruca vulgaris 7252301 3 B07.9 Advised to try OTC wart remover, we do not have cryofreeze in office and no dermatolog y to refer herRTC if no improvemen t [id number] MD Kaylin Amanda ([facility]) [address] [place] [phone] 09/09/2017 09:25:03 09/12/2017 12:06:10 Hyperthyroidism 29162769 E05.90 Will recheck thyroid levels todayIf WNL, RTC 6 months Gastroesop hageal reflux disease 815774292 K21.9 continue ranitidine Advised to stay away from spicy and greasy foodsAdvis ed to stay away from fatty foodsDo not eat within 2 hours of going to bedStay sitting up after mealsNo smoking Benign par oxysmal positional vertigo 391464226 H81.13 Try OTC meclazine. PRNInforma tion on mandy maneuvers provided. Body mass index 25-29 - overweight 489882183 Z68.26 Advised 30 minutes of exercise 5 days/week Advised to not drink her calories Advised 3 balanced meals/day with plenty of fruits and vegetables Will check fasting labs at next visit Depressive disorder 4018 9007 F32.9 No screen time within an hour of bedNo caffeine close to bed timeTalked about good sleep hygeine and going to bed at the same time every night and waking up at the same time every morningFin d calming activies to do at night like crafting, reading, meditation Patient declined counseling and medication at this time Adult heal th examination 023743857 Z00.01 Vitamin D deficiency 347 20507 E55.9 WNL at last check Hyperlipidemia 35056482 E78.2 WIll recheck at next visit Tobacco de pendence syndrome 24037062 F17.200 Wants to quit. Rx fo Chantix given - advised if she develops severe depressive sx's, SI/HI to stop medication imediately and contact office Screening for malignant neoplasm of colon 697062919 Z12.11 Nasal congestion 8180241 0 R09.81 [id number] MD Kaylin [facility] ([facility]) [address] [place] [address] 11/25/2017 09:36:52 11/25/2017 10:53:13 Screening mammography 78912061 Z12.31 [id number] MD Kaylin [facility] (Adult Med) [address] [place] [address] 0 04/21/2018 10:55:45 04/25/2018 11:00:06 Adult health examination 760649263 Z00.01 Hyperthyroidism 48507315 E05.90 Will recheck thyroid levels todayIf WNL, RTC 6 months Gastroesop hageal reflux disease 521247715 K21.9 continue ranitidine Advised to stay away from spicy and greasy foodsAdvis ed to stay away from fatty foodsDo not eat within 2 hours of going to bedStay sitting up after mealsNo smoking. still has medication on hand. Body mass index 25-29 - overweight 891806233 Z68.26 Advised 30 minutes of exercise 5 days/week Advised to not drink her calories Advised 3 balanced meals/day with plenty of fruits and vegetables Will check fasting labs at next visit Tobacco de pendence syndrome 84576739 F17.200 Wants to quit. Rx fo Chantix given -stopped medication because it make her feel bad. [id number] [facility] (Adult Med) [address] [place] [address] 0 10/27/2018 14:39:46 10/30/2018 09:00:18 Body mass index 25-29 - overweight 627499156 Z68.26 -Discussed lifestyle modificati ons including 150 minutes moderate intensity exercise per week, restrictin g intake of fast/proce ssed foods, sweets, sugary beverages. Gastroesop hageal reflux disease 853737125 K21.9 Hyperthyroidism 58583159 E05.90 Vitamin D deficiency 347 67261 E55.9 Adult heal th examination 401502467 Z00.00 Nasal congestion 2700484 0 R09.81 Benign par oxysmal positional vertigo 511401371 H81.13 Depressive disorder 3543 9007 F32.9 Major depressive episode x couple months, mother lost her leg and patient now caring for both her parents with no help from her siblings, she feels overwhelme dDenies HI/SIPatie nt interested in starting medication , will start patient on low dose of Fluoxetine , patient states she can not afford to return to office in 6 weeks for follow-up, I advised patient to call the office and let us know how she is doing with this new medication Will send a referral for counseling Paresthesi a of lower extremity 743309519 R20.2 Complainin g of paresthesi as and burning sensation on dorsum of feet and lower legs bilaterall y x 6 monthsNo prior history of diabetes or lower back painWill check CBC, vitamin def., and hgba1c for possible causes [id number] PRADEEP FRANCIS (Adult Med) [address] [place] [phone] 04/13/2019 10:39:34 04/16/2019 14:15:52 Paresthesia of lower extremity 616658588 R20.2 Complainin g of paresthesi as and burning sensation on dorsum of feet and lower legs bilaterall y x 6 monthsNo prior history of diabetes or lower back painNo evidence of vit. B12 or folate deficiency , can start trial of vit b12 supplement to see if helps- Declined gabapentin at this time- Consider NCS if continues Depressive disorder 1478 3529 F32.9 Feels like her depression has improvedCu rrently grieving the loss of one of her parentsAdm its to generalize d fatigue and weaknesssS topped taking fluoxetine because did not feel like it was helpingDen ies HI/SIPHQ 2 was mild in office today (5 out of 27)- advised her to see counseling - if restart medication , try SNRI to help with nerve pain Vitamin D deficiency 347 20725 E55.9 - Continue taking Vit. D supplement s Body mass index 25-29 - overweight 542537669 Z68.26 -Discussed lifestyle modificati ons including 150 minutes moderate intensity exercise per week, restrictin g intake of fast/proce ssed foods, sweets, sugary beverages. Hypothyroidism 71307024 E03.9 Tx with levothyrox ine 50 mcg, TSH mildly elevated 11/06/18, never returned to check levels- Will check levels today, provided her with earlier order Gastroesop hageal reflux disease without esophagitis 510190047 K21.9 Can no longer get ranitidine , will switch to omeprazole Anemia 184069884 D64.9 11/03/18 Hgb and Hct normal (Hgb at lower limit of normal) MCV and MCH both low RDW high Patient never returned for repeat testingCom plaining of fatigue and weakness- Provided her with repeat orders for CBC and iron studies [id number] PRADEEP FRANCIS (Adult Med) [facility] [place] [address] 06/15/2019 10:22:22 06/18/2019 11:26:28 Anemia 703952314 D64.9 11/03/18 Hgb and Hct normal (Hgb at lower limit of normal) MCV and MCH both low, RDW highRepeat labs 06/01/19 that resulted as low MCV and MCH with high RDW and RBC.Iron, TIBC, and ferritin levels were normal. Reports persistent fatigue today. Denies FMHx blood disorder. - Provided her with Hgb electropho resis order from previous lab work result for further evaluation . Diarrhea 48822994 R19.7 Reports sudden urge to have bowel movement with nausea and bloating x 1 week after large meals. - Discussed supportive care at this time as she has had symptoms for only one week and keeping track of any foods that may cause flare. - If symptoms continue to persist over the next few weeks, pt to schedule f/u appointmen t for further evaluation .- consider colonoscop y referral since above age 50 and having urge symptoms Paresthesi a of lower extremity 093700555 R20.2 Complainin g of paresthesi as and burning sensation on dorsum of feet and lower legs bilaterall y x 8 months.No prior history of diabetes or lower back painStarte d Vitamin B12 at last OV. Denies improvemen t today. - Discussed recent lab work that does not show any evidence of an issue that would cause these symptoms. - Discussed options of starting gabapentin vs. NCS. As pt cannot afford NCS at this time, elects to start gabapentin . Hypothyroidism 99938027 E03.9 Tx with levothyrox ine 75 mcg, TSH WNL from 06/01/2019. - Discussed labs with pt. T/c current treatment. Xerostomia 53665726 R68. 2 Pt reports dry mouth over the past few months. - Advised humidifier use and to stay hydrated Body mass index 25-29 - overweight 435980955 Z68.26 -Discussed lifestyle modificati ons including 150 minutes moderate intensity exercise per week, restrictin g intake of fast/proce ssed foods, sweets, sugary beverages. [id number] Amadou Higgins MD [facility] (Adult Med) [address] [place] [phone] 01/11/2020 09:53:04 01/14/2020 11:29:22 Hypothyroidism 79391174 E03.9 Discussed with patient, will check thyroid functions today. [id number] PRADEEP FRANCIS Kaylin (Adult Med) [address] [place] [phone] 08/08/2020 09:11:00 08/11/2020 11:07:16 Hypothyroidism 90244279 E03.9 Last TSH and T4 normal (01/2020) Currently taking levothyrox ine 75 mcg - continue current treatment - will recheck today due to symptoms Anemia 156278550 D64.9 06/15/19: elevated HbF (7), low Hbg A (90.4) 06/01/19: RBC high 5.39, MCV low 68, MCH low 21.7, RDW high 20.7; iron, TIBC, ferritin were normal. 11/03/18: Hgb and Hct normal (Hgb at lower limit of normal) Reports persistent fatigue today. Denies FMHx blood disorder. - will order reticulocy te count, hematopath smear, CBC, Iron studies today - due to no insurance, holding off on hematology referral at this time Paresthesi a of lower extremity 702463533 R20.2 Pt with paresthesi as and burning sensation on dorsum of feet bilaterall y x 3 years, worsening in the last year. No progressio n of symptoms up the leg. No prior history of diabetes or low back pain No improvemen t with B12. Mild improvemen t with gabapentin but stopped taking. - Check A1c, Vit B12 and serum protein electropho resis today - Consider podiatry referral Body mass index 25-29 - overweight 374276881 Z68.26 -Discussed lifestyle modificati ons including 150 minutes moderate intensity exercise per week, restrictin g intake of fast/proce ssed foods, sweets, sugary beverages. Adult heal th examination 654579615 Z00.00 Pt is overall healthy with elevated BP today and complaints of BAIRD, dizziness x 3 months. PHQ 2/9 was mild in office today (6 out of 27) - Check CMP, lipid panel, Vit D today Increased blood pressure 63798497 R03.0 BP today 150/100 and 142/80 Does not check BP elsewhere Pt with dizziness and BAIRD intermitte ntly over the last few weeks, worse when going from sit-stand and bending over. Discussed DASH diet Advised 30 minutes of exercise minimum daily Advised tobacco, alcohol, caffeine all increase BP Advised goal for BP is <140/90 Contact office if BP is > 140/90 consistent ly Discussed consequenc es of HTN including kidney, eye, heart damage, stroke, and even - Start treatment with lisinopril 5mg every morning - Ordered BP cuff today - Pt provided informatio n on HTN and using a BP cuff - RTC 1 months for BP check [id number] PRADEEP FRANCIS (Adult Med) [address] [place] [address] 09/19/2020 09:15:26 09/23/2020 14:36:03 Beta thalassemia trait 456451939 D56.3 08/2020: RBC high, normal Hgb, MCV 70, RDW high, iron normal, ferritin high, normal retic. Smear showed abnormal results suggestive of hemoglobin opathy/amelie brenda Reports persistent fatigue today. Denies FMHx blood disorder. Likely diagnosis of beta thalassemi a trait - saw Hematology , they requested a specific test in our lab, will send results Increased blood pressure 67189769 R03.0 BP: 122/76 and 102/80, currently taking lisinopril 5 mg (complaini ng of new dry cough) Discussed DASH diet Advised 30 minutes of exercise minimum daily Advised tobacco, alcohol, caffeine all increase BP Advised goal for BP is <140/90 Contact office if BP is > 140/90 consistent ly Discussed consequenc es of HTN including kidney, eye, heart damage, stroke, and even - discontinu e lisinopril 5 mg- Start treatment with losartan 25mg every morning - Continue with diet and exercise as directed- Continue monitoring blood pressure daily at home- f/u in 1 month Hypothyroidism 25119469 E03.9 TSH and T4 normal (01/2020) TSH slightly low, T4 normal (08/2020) Currently taking levothyrox ine 75 mcg - plan to recheck levels [id number] PRADEEP HUGO [facility] [address] [place] [address] 01/23/2021 15:41:39 01/27/2021 09:16:08 Increased blood pressure 40675168 R03.0 BP: 162/100 , not controlled . forgot to take pill this week. will monitor oer weekend at home and she will bring BP log tuesday. Discussed DASH diet Advised 30 minutes of exercise minimum daily Advised tobacco, alcohol, caffeine all increase BP Advised goal for BP is <140/90 Contact office if BP is > 140/90 consistent ly Discussed consequenc es of HTN including kidney, eye, heart damage, stroke, and even - Continue treatment with losartan 25mg every morning - Continue with diet and exercise as directed - Continue monitoring blood pressure daily at home- f/u in 1 month Beta thala ssemia trait 479368105 D56.3 08/2020: RBC high, normal Hgb, MCV 70, RDW high, iron normal, ferritin high, normal retic. Smear showed abnormal results suggestive of hemoglobin opathy/amelie brenda Reports persistent fatigue today. Denies FMHx blood disorder. Likely diagnosis of beta thalassemi a trait - saw Hematology already Hypothyroidism 92562175 E03.9 TSH and T4 normal (09/2020) Currently taking levothyrox ine 75 mcg - plan to recheck levels every 6 months Body mass index 25-29 - overweight 441603144 Z68.26 [id number] PRADEEP HUGO [facility] [address] [place] [address] 04/17/2021 10:08:33 04/27/2021 07:38:30 Increased blood pressure 90649295 R03.0 BP: 130/86 , not controlled . forgot to take pill this week. will monitor over weekend at home and she will bring BP log Tuesday. Discussed DASH diet Advised 30 minutes of exercise minimum daily Advised tobacco, alcohol, caffeine all increase BP Advised goal for BP is <140/90 Contact office if BP is > 140/90 consistent ly Discussed consequenc es of HTN including kidney, eye, heart damage, stroke, and even - Continue treatment with losartan 25mg every morning - Continue with diet and exercise as directed- Continue monitoring blood pressure daily at home- f/u in 1 month Beta thala ssemia trait 222790869 D56.3 08/2020: RBC high, normal Hgb, MCV 70, RDW high, iron normal, ferritin high, normal retic. Smear showed abnormal results suggestive of hemoglobin opathy/amelie brenda Reports persistent fatigue today. Denies FMHx blood disorder. Likely diagnosis of beta thalassemi a trait - saw Hematology already Hypothyroidism 57135300 E03.9 TSH and T4 normal (09/2020) Currently taking levothyrox ine 75 mcg - plan to recheck levels every 6 months Prediabetes 863658050 R7 3.03 f/7 08/2020 Hyperlipidemia 79377129 E78.5 Vitamin D deficiency 347 38375 E55.9 Depression screening 171 391283 Z13.31 negative Overweight 992935883 E66 .3 HIV screening 780365088 Z11.4 Screening mammography 24 763922 Z12.31 given number for remberto [id number] PRADEEP HUGO [facility] [address] [place] [address] 07/03/2021 12:02:54 07/05/2021 09:09:46 Increased blood pressure 80151572 R03.0 BP: 130/86 , not controlled . forgot to take pill this week. will monitor over weekend at home and she will bring BP log Tuesday. Discussed DASH diet Advised 30 minutes of exercise minimum daily Advised tobacco, alcohol, caffeine all increase BP Advised goal for BP is <140/90 Contact office if BP is > 140/90 consistent ly Discussed consequenc es of HTN including kidney, eye, heart damage, stroke, and even - Continue treatment with losartan 25mg every morning - Continue with diet and exercise as directed - Continue monitoring blood pressure daily at home- f/u in 1 month Beta thala ssemia trait 458105004 D56.3 08/2020: RBC high, normal Hgb, MCV 70, RDW high, iron normal, ferritin high, normal retic. Smear showed abnormal results suggestive of hemoglobin opathy/amelie brenda Reports persistent fatigue today. Denies FMHx blood disorder. Likely diagnosis of beta thalassemi a trait - saw Hematology already Anxiety 48630660 F41.9 stress affecting sleep, feels depressed, loss in weight, forgetting to eat, upper back pain, clenching her jaw, headaches. will try venlafaxin e for anxiety and possible help with neuropathy pain. Neuropathy 992077865 G62 .9 Unintentio nal weight loss 550958136 R63.4 patient states she lost weight but on further questionin g she had cut out carbs and greasy foods after being dx with prediabete s. Will f/u one month. will make sure thyroid and other labs still normal. TSH WNL 04/2021. [id number] PRADEEP HUGO [facility] [address] [place] [address] 07/17/2021 15:11:38 07/20/2021 16:33:29 Adult health examination 264888313 Z00.00 Essential hypertension 20075919 I10 [id number] PRADEEP HUGO [facility] [address] [place] [address] 08/17/2021 10:54:04 08/19/2021 07:46:40 Hypothyroidism 23948134 E03.9 decreased dose to 50mcg, recheck today Right lowe r quadrant pain 370474862 R10.31 1 week of occasional pain on RLLQ. denies heamturia, vaginal discharge, fever, chills, constipati on, vomiting. no pain on exam. will r/o Uti. Advised ER if pain worsens. negative psoas sign. - UA [id number] PRADEEP HUGO [facility] [address] [place] [address] 11/09/2021 11:20:41 11/25/2021 12:18:43 Gynecologic examination 15768941 Z01.411 - pap obtained- breast education given- obgyn for cervical protrusion Screening for malignant neoplasm of breast 009158923 Z12.39 Appointmen t scheduled for next week Lump of cervix 164551340 R19.09 area was first noticed by Sushma Mcadams PAC 2016. she Discussed the cervical protrusion with Dr. Mancia who states that it is likely a cervical polyp. On exam the area is large and would benfit from seeing obgyn. Essential hypertension 43785870 I10 elevated BP today. F/U inc [facility] for BP check. denies cp, sob, palpitatio ns. [id number] PRADEEP HUGO [facility] [address] [place] [address] 02/18/2022 09:53:39 02/22/2022 11:38:30 Anxiety 60542881 F41.9 will try increase venlafaxin e for bruxism. Pain of bi lateral hands 0219363500 6420656 M79.641 She c/o of b/l hand pain and swelling when waking up and improved some after 30 minutes. This has been going on for <6 months. Menopause present 990994 006 N95.1 refill Hypothyroidism 90085489 E03.9 Vitamin D deficiency 347 21180 E55.9 Essential hypertension 34466126 I10 controlled today Increased blood pressure 38044584 R03.0 BP: 130/86 , not controlled . forgot to take pill this week. will monitor over weekend at home and she will bring BP log Tuesday. 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 not a/w snri. will trial home teeth guard and increase venlafaxin e. [id number] PRADEEP SR ([employer]) [address] [place] [address] 02/23/2022 09:50:30 02/24/2022 09:00:27 Mucous retention cyst of cervix uteri 541453148 N88.8 PE findings c/w nabothian cyst. Counseled pt on commonness and benign nature of nabothian cysts and that no interventi on is usually required. Recommende d patient keep up with routine pelvic exams. Pt voiced understand ing and is agreeable with plan. Image placed in patient's chart for reference. RTC with any further issues. [id number] PRADEEP HUGO [facility] [address] [place] [address] 09/16/2022 15:30:48 09/16/2022 16:17:24 Anxiety 31739440 F41.9 controlled refillsden ies si/hi Menopause present 625484 006 N95.1 refill Hypothyroidism 49270255 E03.9 refill Increased blood pressure 52338586 R03.0 BP: 112/70 , controlled . - Continue treatment with losartan 25mg every morning - Continue with diet and exercise as directed- Continue monitoring blood pressure daily at home Adult heal th examination 784922355 Z00.00 - cologuard- continue levothyrox ine Smoker 95550535 F17.200 smoking for 42 years1/2-1 ppd since age 89/4 ppd currentlyw e discussed all options and she would like to bupropion again, did well in the pastset quit date for 2 weeks Screening for malignant neoplasm of colon 282679111 Z12.11 agrees to cologuardd enies family history colon cancerdeni es changes in stool or blood/dark stools Gastroesop hageal reflux disease 138428731 K21.9 Nocturia 179920138 R35.1 she states she is peeing more at nighthx of prediabete sr/o urirecheck A1C Screening for malignant neoplasm of respiratory tract 210130813 Z12.2 smoking for 42 years1/2-1 ppd since age 89/4 ppd currently Overweight 429820779 E66 .3 [id number] PRADEEP HUGO [facility] [address] [place] [address] 10/06/2022 14:33:59 10/06/2022 14:35:57 [id number] PRADEEP HUGO [facility] [address] [place] [address] 11/22/2022 14:47:13 11/24/2022 12:49:38 Adult health examination 329871680 Z00.00 - cologuard- continue levothyrox ine [id number] PRADEEP HUGO [facility] [address] [place] [place] [address] 03/22/2023 16:44:15 03/25/2023 15:05:56 Adult health examination 401707303 Z00.00 - cologuard negative- continue levothyrox ine- stop smoking- labs Pain of le ft knee joint 3257207492 23390 M25.562 L pain in knee for months often keeping her up. not taking anything. denies swelling, bruising, known AKUA. She is weight bearing. Pain in right hand 53906 65875 12555 M79.641 R hand second MCP joint painful. 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 On exam she has swollen joints-xra y- PT Smoker 22325652 F17.200 smoking for 42 years1/2-1 ppd since age 89/4 ppd currentlyw e discussed all options and she would like to bupropion again, did well in the pastset quit date for 2 weeks [id number] PRADEEP HUGO [facility] [address] [place] [address] 03/29/2023 09:45:28 03/29/2023 10:06:53 [id number] PRADEEP HUGO [facility] [address] [place] [address] 07/20/2023 15:08:05 07/25/2023 20:44:33 Iron deficiency anemia 57724557 D50.9 hx of B thalassemi amonitor iron Hypothyroidism 73560100 E03.9 on levothyrox ine 75mgrefill Chest pain 12094011 R07. 9 has had pressure pain in her chest a few times in the last few months. she denies anxiety during this time. usually at rest. she takes losartan for BP daily. denies dizziness, palpations , sob with episodes. Overweight 530824688 E66 .3 bmi 26.6 Prediabetes 043681842 R7 3.03 f/7 08/2020 Nasal congestion 2219130 0 R09.81 refill Paresthesi a of lower extremity 357311946 R20.2 Pt with paresthesi as and burning sensation on dorsum of feet bilaterall y x 5 years, No progressio n of symptoms up the leg. No prior history of diabetes or low back pain. does have prediabete s,. No improvemen t with B12. Mild improvemen t with gabapentin but stopped taking. normal Vit B12 and serum protein electropho resis 2020 - podiatry referral [id number] FELICE RAI DPM [facility] [address] [place] [address] 09/15/2023 16:26:13 09/25/2023 11:05:34 Idiopathic peripheral neuropathy 29908693 G60.9 Patient was educated about the systemic risks and dangers of neuropathy and loss of gift of pain and risk stratifica tion and exam frequency. Patient was educated on high pressure areas including risks and offloading solutions. Reviewed with patient proper foot care instructio ns and daily self-exami nation and monitoring of the feet. Bilateral atherosclerosis of arteries of lower limbs 7441505027 5467802 I70.203 The patient was educated about the importance of exercise, diet and the need to protect their feet in order to prevent injury or ulceration Pain in left foot 080052 6209 97020 M79.672 Pain in right foot 58529 56526 57165 M79.671 Onychomycosis 832359355 B35.1 The patient was educated why and how the fungal infection evolved in their feet and the patient was given informatio n regarding how to prevent further infection. The patient was told to keep feet dry and change socks. The patient was told to be careful with old shoes and excessive sweating. The patient was educated regarding both OTC and prescripti on treatments . [id number] Cj Escudero MD [facility] [address] [place] [address] 01/26/2024 16:46:42 01/26/2024 17:13:12 Essential hypertension 32671049 I10 controlled today Gastroesop hageal reflux disease 278764642 K21.9 restart famotidine and f/u if still having epigastric pain and bloating. 1.Avoid lying flat 3 to 4 hours after eating or drinking. 2.Elevate the head of bed 4-8 inches. 3.Avoid tight clothing around the waist. 4.Decrease dietary fat intake. 5. Avoid acidic foods (citrus and tomato-bas ed products), alcohol, caffeinate d beverages, chocolate, onions, garlic, salt, and peppermint oil. 6. Avoid large meals. 7. Avoid drinking coffee, or carbonated beverages. 8. Weight loss can help with symptoms, try to diet and exercise. Hypothyroidism 07224356 E03.9 on levothyrox ine 75mgrefill Anxiety 61572058 F41.9 controlled refillsden ies si/hi Increased blood pressure 75283139 R03.0 BP: 112/70 , controlled . - Continue treatment with losartan 25mg every morning - Continue with diet and exercise as directed- Continue monitoring blood pressure daily at home [id number] Antony Davis DPM [facility] [address] [place] [address] 04/18/2024 15:37:50 04/18/2024 16:56:15 Left tarsal tunnel syndrome 7515984670 47331 G57.52 Right tars al tunnel syndrome 8608736248 70616 G57.51 [id number] Antony Davis DPM [facility] [address] [place] [address] 05/02/2024 16:11:38 07/23/2024 10:41:08 Idiopathic peripheral neuropathy 44548607 G60.9 [id number] Cj Escudero MD [facility] [address] [place] [address] 07/25/2024 16:47:20 07/25/2024 17:17:16 Screening mammography 29554909 Z12.31 Screening mammogram given to patient to schedule Pneumococc al immunization status 429797336 Z23 Overweight 243665876 E66 .3 bmi 26.6 Hypothyroidism 89416757 E03.9 on levothyrox ine 75mgrefill [id number] Antony Davis DPM [facility] [address] [place] [address] 08/08/2024 16:04:18 08/09/2024 14:03:54 Idiopathic peripheral neuropathy 76504817 G60.9 Plantar fasciitis 296603 003 M72.2 Health Concerns Section Related Observation LastModified by Organization Detai ls LastModified Time None Recorded Concern Status LastModified by Organization Details LastModified Time None Recorded Advance Directives Directive N: Payers Insurance Date Sequence Insurance Name Policy Number Policy Beckett Covered Member ID Beckett Member ID Guarantor Name 07/22/2024 1 [place] [employer] [place] [employer] Emmy Michele [id number] Emmy Michele 11/22/2022 [place] Emmy Michele [id number] Emmy Michele 08/17/2021 SLIDING FEE SCHEDULE - DISCOUNT Emmy Michele 08/08/2020 2 *SELF PAY* Ra quel Michele 08/08/2020 SLIDING FEE SCHEDULE - DISCOUNT Emmy Michele 03/21/2019 SLIDING FEE SCHEDULE - DISCOUNT Emmy Michele 11/22/2022 [place] WHEN [place]ARE OR MEDICARE REPLACEMENT PRIMARY) Emmy Michele [id number] Emmy Michele 08/15/2019 SLIDING FEE SCHEDULE - DISCOUNT Emmy Michele 09/16/2022 SLIDING FEE SCHEDULE - DISCOUNT Emmy Michele 07/22/2024 [facility] - DOS ON OR AFTER 20 (MEDICAID REPLACEMENT - HMO) Emmy Michele [id number] Emmy Michele 2014 SLIDING FEE SCHEDULE - DISCOUNT Emmy Michele 06/30/2016 SLIDING FEE SCHEDULE - DISCOUNT Emmy Michele 11/22/2022 [facility] DEPT Emmy Michele [id number] Emmy Michele 06/30/2016 1 *SELF PAY* Ra jazminl Michele 08/20/2016 SLIDING FEE SCHEDULE - DISCOUNT Emmy Michele 03/08/2017 SLIDING FEE SCHEDULE - DISCOUNT Emmy Michele 11/22/2022 [facility] DEPT Emmy Michele [facility] Emmy Michele 02/18/2022 1 *SELF PAY* Ra quel Michele 04/21/2018 SLIDING FEE SCHEDULE - DISCOUNT Emmy Michele Notes Date Note Type Note Provider Name and Address Organization Details Recorded Time 01/26/2024 text/html Pt is a 63 y/o female who presents today for follow-up lans and reflls only Hypothyroidism: She continues Euthyrox 75 mcg daily. doing well needs refills of famotidine. they told me id always have gerd with my gallbladder out. PRADEEP HUGO Attn: Accounting[address] [facility], [place], [address], [facility] 01/26/2024 17:18:37 04/18/2024 text/html patient presents today after being away from the office his September. She presents today complaining that she is having burning in the bottom of both her feet. States it is worse the end of the day. The more active she is the more discomfort that she does have. Antony Davis DPM [address] [place], [address], [facility] 07/08/2024 21:15:31 05/02/2024 text/html patient presents today in follow up of possible tarsal tunnel bilateral. Patient states that the strappings we placed her in helped minimally if any at all. States that she is still getting burning and tingling in her feet. Antony Davis DPM [address], [place], [address], [facility] 07/19/2024 22:24:00 07/25/2024 text/html Pt is a 63 y/o female who presents today for follow-up labs and refills only Hypothyroidism: She continues Euthyrox 75 mcg daily. doing well And taking it as prescribed.She denies any new concerns. She denies chest pain or shortness of breath. She continues to stay active. PRADEEP HUGO Attn: Accounting[address] , [place], [address], [facility] 07/26/2024 10:10:00 08/08/2024 text/html Patient presents today for follow up of generalized foot pain and peripheral neuropathy. Patient states that the orthotics have helped out her foot pain but she still gets a lot of tingling and pins and needles in her feet. Antony Davis, DPShiva [address] [place], [address], [facility] 08/09/2024 10:57:43 OBGyn Episode Ob Episode Information Episode Created Date Number of Fetuses Patient Bloodtype Patient rh Status Prepregnancy Weight lbs Domestic Partner Domestic Partner Phone Father Name Fisher Status 11/26/19 18 1 CLOSED Fetus Data First Name Last Name Admitted to NICU Weight (g) Sex Living Outcome Pediatric Complications Fetus ID Race Codes Race Delivery Type M Full Term [id number] Vaginal Vishal Calculation Initial Vishal Date Initial Exam Date Initial Exam Provider Initial Ultrasound Date Last Menstrual Period Date Ultra Sound Weeks Gestation 0 Eighteen To Twenty Week Vishal Update Ultra Sound Date Fundal Height At Umbil Quickening Date Ultra Sound Latest Weeks Gestation Final Vishal Confirmed By Final Vishal Confirmed Date Final Vishal Date Ultra Sound Latest Days Gestation 0 0 Menstrual History Last Menstrual Date Menses Monthly On Bcp Conception Prior Menses Frequency Hcg Plus Date Menarche Onset Age Delivery Information Delivery Date Delivery Type Labor Anesthesia Weeks Gestation Incision Type Labor Labor Length Hrs Delivered By Post Complications Tubal Sterilization Discharge Date Comments 3 Regional-Ep idural 40 false Baby was born in [place] Discharge Information Feeding Method Contraceptive Method Maternal HG B and HCT Levels Ob Episode Information Episode Created Date Number of Fetuses Patient Bloodtype Patient rh Status Prepregnancy Weight lbs Domestic Partner Domestic Partner Phone Father Name Fisher Status 11/26/19 18 1 CLOSED Fetus Data First Name Last Name Admitted to NICU Weight (g) Sex Living Outcome Pediatric Complications Fetus ID Race Codes Race Delivery Type M Full Term [id number] Only Vishal Calculation Initial Vishal Date Initial Exam Date Initial Exam Provider Initial Ultrasound Date Last Menstrual Period Date Ultra Sound Weeks Gestation 0 Eighteen To Twenty Week Vishal Update Ultra Sound Date Fundal Height At Umbil Quickening Date Ultra Sound Latest Weeks Gestation Final Vishal Confirmed By Final Vishal Confirmed Date Final Vishal Date Ultra Sound Latest Days Gestation 0 0 Menstrual History Last Menstrual Date Menses Monthly On Bcp Conception Prior Menses Frequency Hcg Plus Date Menarche Onset Age Delivery Information Delivery Date Delivery Type Labor Anesthesia Weeks Gestation Incision Type Labor Labor Length Hrs Delivered By Post Complications Tubal Sterilization Discharge Date Comments 2 Regional-Ep idural 40 false Baby was born in [place] Discharge Information Feeding Method Contraceptive Method Maternal HG B and HCT Levels Ob Episode Information Episode Created Date Number of Fetuses Patient Bloodtype Patient rh Status Prepregnancy Weight lbs Domestic Partner Domestic Partner Phone Father Name Fisher Status 11/26/19 18 1 CLOSED Fetus Data First Name Last Name Admitted to NICU Weight (g) Sex Living Outcome Pediatric Complications Fetus ID Race Codes Race Delivery Type F Full Term [id number] Vaginal Vishal Calculation Initial Vishal Date Initial Exam Date Initial Exam Provider Initial Ultrasound Date Last Menstrual Period Date Ultra Sound Weeks Gestation 0 Eighteen To Twenty Week Vishal Update Ultra Sound Date Fundal Height At Umbil Quickening Date Ultra Sound Latest Weeks Gestation Final Vishal Confirmed By Final Vishal Confirmed Date Final Vishal Date Ultra Sound Latest Days Gestation 0 0 Menstrual History Last Menstrual Date Menses Monthly On Bcp Conception Prior Menses Frequency Hcg Plus Date Menarche Onset Age Delivery Information Delivery Date Delivery Type Labor Anesthesia Weeks Gestation Incision Type Labor Labor Length Hrs Delivered By Post Complications Tubal Sterilization Discharge Date Comments 5 None 40 false Discharge Information Feeding Method Contraceptive Method Maternal HG B and HCT Levels
--- OUTSIDE RECORDS SUMMARY | 2024-09-16 11:11 | XMS_ITS | Clinical Summary ---
Author Organization [facility] Address [address] [place] [address] Care Team Providers Care Vocational Guidance Counselor Name Role Phone Shawn Low MD Primary Care Provider Unavailab le Source Comments [facility],non-owned Affiliates and Associated Physician Practices is amultiple site organization consisting of ambulatory clinics and hospital sitesin [place], [place], [place] and [place]. This disclosure is being madepursuant to the Care Everywhere program and may not contain all information available regarding this patient. Last updated 17.[facility] [employer] Allergies No known active allergies Medications * Be aware that medications may not be up to date on this document. Alwaysverify current medications with the patient. simvastatin (ZOCOR) 40 MG tablet Take 40 mg by mouth at bedtime. Active hydrocodone-acet aminophen (VICODIN) 5-500 MG tablet Take 1 Tab by mouth every 4 hours as needed. Active loratadine (CLARITIN) 10 MG tablet Take 1 Tab by mouth once daily. 5 Tab 0 10/20/2010 Active famotidine (PEPCID) 20 MG tablet Take 1 Tab by mouth once daily. 5 Tab 0 10/20/2010 Active oxycodone-acetam inophen (PERCOCET) 5-325 MG tablet Take 1 Tab by mouth every 6 hours as needed for Pain. 30 Tab 0 10/20/2010 Active hydrocodone-acet aminophen (VICODIN) 5-500 MG tablet Take 1 Tab by mouth every 4 hours as needed. 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 Gender Identity Not on file Sexual Orientation Not on file Last Filed Vital Signs Vital Sign Reading Time Taken Comments Blood Pressure 120/70 10/27/2010 1:58 PM CDT Pulse 76 10/27/2010 1:58 PM CDT Temperature 37.3 C (99.2 F) 10/27/2010 1:58 PM CDT Respiratory Rate 18 10/27/2010 1:58 PM CDT Oxygen Saturation 99% 10/20/2010 12:06 PM CDT Inhaled Oxygen Concentration - - Weight 74.4 kg (164 lb) 10/27/2010 1:58 PM CDT Height 172.7 cm (5' 8) 10/27/2010 1:58 PM CDT Body Mass Index 24.94 10/27/2010 1:58 PM CDT Plan of Treatment Health Maintenance Due Date Last Done Comments COLOGUARD (AGES 45-75) - COL ON CA SCREENING 1961 COLON MONITORING 1961 COLONOSCOPY - COLON CA SCREENING 1961 CT COLONOGRAPHY - COLON CA SCREENING 1961 Colorectal Cancer Screening 1961 FIT - COLON CA SCREENING 1961 FLEX SIG - COLON CA SCREENING 1961 MAMMOGRAM 1961 HIV SCREENING 1976 HEPATITIS C SCREENING 12/08/1979 DTAP/TDAP/TD VACCINES (1 - Tdap) 1980 PNEUMOCOCCAL VACCINE 50+ (1 of 1 - PCV) 12/13/2011 ZOSTER VACCINE (1 of 2) 12/13/2011 COVID-19 VACCINE ( - 2023-2 5 season) 2023 DEPRESSION SCREENING 04/04/2024 INFLUENZA VACCINE (Season Ended) 2024 Respiratory Syncytial Virus (RSV) Vaccine Pt: or over 60 yrs (1 - 1-dose 75+ series) 2036 HEPATITIS B VACCINE Aged Out No longe r eligible based on patient's age to complete this topic HIB VACCINE Aged Out No longer eligi ble based on patient's age to complete this topic HPV VACCINE Aged Out No longer eligi ble based on patient's age to complete this topic MENINGOCOCCAL (Group B) VACC INE SHARED DECISION-MAKING Aged Out No longer eligibl e based on patient's age to complete this topic MENINGOCOCCAL GROUPS A/C/Y/W VACCINE Aged Out No longer eligible b ased on patient's age to complete this topic Care Teams Vocational Guidance Counselor Relationship Specialty Start Date End Date Shawn Low MD NEED INFORMATION UPDATED PCP - General 10/20/10
--- OUTSIDE RECORDS SUMMARY | 2024-09-16 11:12 | XMS_ITS | Clinical Summary ---
Author Organization [facility] Administrative Offices Address [address] [place] [address] Care Team Providers Care Legal Support Manager Name Role Phone Shawn Low MD Primary Care Provider Allergies Active Allergy Reactions Criticality Noted Date Comments Hydrocodone-Acetaminophen Rash,Fever Low 10/30/2010 Medications famotidine (PEPCID) 20 mg Oral tablet Take 20 mg by mouth daily. 10/30/2010 Active ciprofloxacin (CIPRO) 500 mg Oral tablet Take 500 mg by mouth 2 times daily. 10/22/2010 Active oxyCODONE-aceta minophen (PERCOCET) 10-325 mg Oral Tab Take 1-2 Tabs by mouth every 4 hours as needed for Pain (For Pain Scale 7-10). 60 Tab 0 10/31/2010 Active docusate sodium (COLACE) 100 mg Oral capsule Take 1 Cap by mouth 2 times daily as needed for Constipation . 40 Cap 1 10/31/2010 Active hydrOXYzine HCl (ATARAX) 25 mg Oral tablet Take 1-2 Tabs by mouth every 4 hours as needed for Anxiety (pain). 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 Gender Identity Not on file Sexual Orientation Not on file Last Filed Vital Signs Vital Sign Reading Time Taken Comments Blood Pressure 107/57 11/01/2010 5:08 AM CDT Pulse 90 11/01/2010 5:08 AM CDT Temperature 37.4 C (99.3 F) 11/01/2010 5:08 AM CDT Respiratory Rate 16 11/01/2010 5:08 AM CDT Oxygen Saturation 95% 11/01/2010 5:21 AM CDT Inhaled Oxygen Concentration - - Weight 72.2 kg (159 lb 2 oz) 10/30/2010 12:52 PM CDT Height 162.6 cm (5' 4) 10/23/2010 9:40 AM CDT Body Mass Index 27.31 10/23/2010 9:40 AM CDT Plan of Treatment Health Maintenance Due Date Last Done Comments DTAP/TDAP/TD VACCINES (1 - Tdap) 1980 HPV/Cotest (21-29) 1982 CERVICAL CANCER SCREENING 12/13/1991 HPV/Cotest (30-65) 12/13/1991 PAP SMEAR 12/13/1991 BREAST CANCER SCREENING 2001 COLORECTAL SCREENING 2006 Colorectal Cancer Screening 2006 FIT-DNA Q 3 years 2006 FIT/FOBT Q 1 year 2006 Flex Sig/CT Colonography Q 5 years 2006 ZOSTER VACCINE (1 of 2) 12/13/2011 INFLUENZA VACCINE (#1) 2023 RSV VACCINE (60+ or ) (1 - 1-dose 75+ series) 2036 Medical Devices Implanted Type Area Foundry Equipment Mechanic Device Identifier Shelf Expiration Date Model / Serial / Lot 3 Hole Distal Humerus Plate Implanted:Qty: 1 on 10/30/2010 at [facility] Plate Left: Elbow [email or web address] [facility] 241.273 / / Description:Autoclave # 4Loa d # [id number] Log [id number] - Synthes Small Frag Lcp Locking - 1 - Screw Han Self Tap 3.5x32mm 204.832 Implanted:Qty: 1 on 10/30/2010 at [facility] Screw Left: Elbow SYN[employer]ES [employer]ATEC 204.832 / LOAD # 48 / STERILE DATE: OCTOBER 27, 2010 Log [id number] - Synthes 3.5 Lcp Distal Humerus & Elbow Plate Sys - 1 - Screw Loc St 2.7x34mm 202.234 Implanted:Qty: 1 on 10/30/2010 at [facility] Screw Left: Elbow [employer] 202.234 / LOAD #[id number] / AUTOCLAVE # 4 Log [id number] - Synthes Small Frag Lcp Locking - 1 - Screw St Loc Stardr 3.5x22mm 212.107 Implanted:Qty: 1 on 10/30/2010 at [facility] Screw Left: Elbow [employer] 212.107 / LOAD # 48 / STERILE DATE: OCTOBER 27, 2010 Log [id number] - Synthes Small Frag Lcp Locking - 1 - Screw Han Self Tap 3.5x20mm 204.820 Implanted:Qty: 1 on 10/30/2010 at [facility] Screw Left: Elbow [employer] 204.820 / LOAD # 48 / STERILE DATE: OCTOBER 27, 2010 Log [id number] - Synthes Small Frag Lcp Locking - 1 - Screw Han Self Tap 3.5x22mm 204.822 Implanted:Qty: 1 on 10/30/2010 at [facility] Screw Left: Elbow [employer] 204.822 / LOAD # 48 / STERILE DATE: OCTOBER 27, 2010 Log [id number] - Synthes Small Frag Lcp Locking - 1 - Screw Han Self Tap 3.5x26mm 204.826 Implanted:Qty: 2 on 10/30/2010 at [facility] Screw Left: Elbow [employer] 204.826 / LOAD # 48 / STERILE DATE: OCTOBER 27, 2010 Log [id number] - Synthes 3.5 Lcp Distal Humerus & Elbow Plate Sys - 1 - Screw Loc St 2.7x18mm 202.218 Implanted:Qty: 1 on 10/30/2010 at [facility] Screw Left: Elbow [employer] 202.218 / LOAD #[id number] / AUTOCLAVE # 4 Log [id number] - Synthes 3.5 Lcp Distal Humerus & Elbow Plate Sys - 1 - Screw Loc St 2.7x20mm 202.220 Implanted:Qty: 1 on 10/30/2010 at [facility] Screw Left: Elbow [employer] 202.220 / LOAD #[id number] / AUTOCLAVE # 4 Log [id number] - Synthes 3.5 Lcp Distal Humerus & Elbow Plate Sys - 1 - Screw Loc St 2.7x30mm 202.230 Implanted:Qty: 2 on 10/30/2010 at [facility] Screw Left: Elbow [employer] 202.230 / LOAD #[id number] / AUTOCLAVE # 4 Explanted Type Area Foundry Equipment Mechanic Device Identifier Shelf Expiration Date Model / Serial / Lot Log [id number] - Synthes Small Frag Lcp Locking - 1 - Screw Han Self Tap 3.5x22mm 204.822 Explanted:Qty: 1 on 10/30/2010 at [facility] Screw Left: Elbow [employer] 204.822 / LOAD # 48 / STERILE DATE: OCTOBER 27, 2010 Advance Directives For more information, please contact: [phone] * Full Code (Latest Code Status on File) Date Activated Date Inactivated Comments 10/30/2010 9:13 PM 11/01/2010 1:02 PM * Full Code Date Activated Date Inactivated Comments 10/30/2010 12:59 PM 10/30/2010 9:13 PM Care Teams Legal Support Manager Relationship Specialty Start Date End Date Shawn Low MD PCP - General Internal Medicine 10/21/10
--- OUTSIDE RECORDS SUMMARY | 2024-09-16 11:12 | XMS_ITS | Clinical Summary ---
Author Organization [facility] Address [address] [place] [address] Phone Care Team Providers Care Toll Gate Keeper Name Role Phone Amanda Hicks HIGINIO Primary Care Provider [phone] Allergies Active Allergy Reactions Criticality Noted Date Comments Hydrocodone-Acetaminophen Other (see Comments),Rash Low 10/30/2010 Medications docusate sodium 100 MG Capsule Take 100 mg by mouth. 10/31/2010 Active famotidine (PEPCID) 20 MG Tablet Take 20 mg by mouth. 10/30/2010 Active hydrOXYzine (ATARAX) 25 MG Tablet Take 25-50 mg by mouth. 11/01/2010 Active Euthyrox 75 MCG Tablet TAKE 1 TABLET BY MOUTH ONCE DAILY DIRECTED 08/19/2020 Active lisinopril (PRINIVIL, ZESTRIL) 5 MG Tablet TAKE 1 TABLET BY MOUTH ONCE DAILY IN THE MORNING 09/07/2020 Active oxyCODONE-Aceta minophen (PERCOCET) 10-325 MG Tablet Take 1-2 Tablets by mouth. 10/31/2010 Active Immunizations Immunization Administration Dates Next Due Covid-19, Mrna, Lnp-s, Pf, 30 Mcg/0.3 Ml Dose (Karen fizer) 07/14/2020,06/23/2020 Family History Medical History Relation Name Comments Cirrhosis Father Relation Name Status Comments Father Mother Alive Social History Tobacco Use Types Packs/Day Years Used Date Smoking Tobacco: Every Day Cigarettes Smokeless Tobacco: Never Tobacco Cessation:Ready to Q uit: No; Counseling Given: Yes Alcohol Use Standard Drinks/Week Comments Not Currently 0 (1 standard drink = 0.6 oz pur e alcohol) PHQ-2 Answer Date Recorded Total Score - Questions 1-9 0 09/02 Comments Unknown Sex and Gender Information Value Date Recorded Sex Assigned at Not on file Legal Sex Female 11:38 AM CDT Gender Identity Not on file Sexual Orientation Not on file Last Filed Vital Signs Vital Sign Reading Time Taken Comments Blood Pressure 130/88 09/12/2020 8:49 AM CDT Pulse 73 09/12/2020 8:49 AM CDT Temperature 36.5 C (97.7 F) 09/12/2020 8:49 AM CDT Respiratory Rate 18 09/12/2020 8:49 AM CDT Oxygen Saturation 97% 09/12/2020 8:49 AM CDT Inhaled Oxygen Concentration - - Weight 78.7 kg (173 lb 6.4 oz) 09/12/2020 8:49 A M CDT Height 170.2 cm (5' 7) 09/12/2020 8:49 AM CDT Body Mass Index 27.16 09/12/2020 8:49 AM CDT Plan of Treatment Health Maintenance Due Date Last Done Comments Hepatitis C Virus (HCV) Screening 1960 TdaP Immunization 1960 Colonoscopy 2006 Colorectal Cancer Screening 2006 Cologuard 12/13/2011 Immunochemical Fecal Occult Blood 12/13/2011 Pneumococcal Immunization (5 0+ years) (1 of 1 - PCV) 12/13/2011 Zoster Immunization (1 of 2) 12/13/2011 SARS-COV-2 Immunization (3 - season) 2023 07/14/2020, 06/23/2020 Influenza Immunization (Seas on Ended) 2024 Respiratory Syncytial Virus (RSV) Immunization (Adult) (1 - 1-dose 75+ series) 2036 Hepatitis B Immunization Aged Out No longer eligible based on patient's age to complete this topic Human Papillomavirus (HPV) Immunization Aged Out No longer eligible b ased on patient's age to complete this topic Meningococcal Immunization (ACWY) Aged Out No longer eligible b ased on patient's age to complete this topic Rotavirus Immunization Aged Out No lo nger eligible based on patient's age to complete this topic Care Teams Toll Gate Keeper Relationship Specialty Start Date End Date Amanda Hicks, PAC [address] [place] [address] PCP - General Physician Director Of Enterprise Strategy 08/19/20
--- NOTE | 2024-09-16 11:14 | ECG_ITS ---
Test Date: 2024-09-16 11:17:31 Measurements Intervals [place] Rate: 62 P: 45 VT: 174 QRS: 27 QRSD: 102 T: 35 QT: 387 QTc: 395 Interpretive Statements SINUS RHYTHM BASELINE ARTIFACT- I, II, III, AVR, AVL, AVF, V1-V6 NORMAL ECG No previous ECG available for comparison Electronically Signed On 09-16-2024 17:19:37 CDT by Christos Montenegro D.O.
[2024-09-16 11:18] VITALS: BP 174/92; PULSE 61; RESP 15; O2SAT 100
[2024-09-16 11:25] VITALS: BP 174/92; PULSE 63; RESP 18; TEMP 36.7; O2SAT 100
--- NOTE | 2024-09-16 11:31 | ED_ITS ---
HPI - General Adult General Chief complaint: Dizziness Stated complaint: dizziness and hypertension Time Seen by Provider: 09/16/24 11:10 History of Present Illness HPI narrative: 63-year-old female present to the emergency department for evaluation for multiple complaints including vertigo and hypertension. Patient does have known hypertension does follow-up with cardiology. Patient denies any changes in her medications. Patient states that she did began having symptoms of dizziness and unstable gait yesterday. Patient states these symptoms resolve with rest are worsened with looking up. Patient states the symptoms did start after tying her shoes. Patient does have a prior history of vertigo but states it began acutely worsening again yesterday. Patient denies any associated numbness or weakness. Patient states typical blood pressures are well controlled but patient family states that the patient has been more anxious due to the increased dizziness and not feeling well. She knows her blood pressure was higher and CT frequently checking it nose taken going up and up. Patient denies any prior history of coronary disease but did states she had some short lasting chest pain this morning but denies any current chest pain. Patient denies any focal numbness or weakness. Related Data Home Medications ?Medication ?Instructions ?Recorded ?Confirmed ?Last Taken ?Type calcium-vitamin D3 250 mg-50 unit tablet PO 08/16/23 12/06/23 Unknown History tablet levothyroxine 75 mcg capsule 75 mcg PO DAILY 08/16/23 12/06/23 Unknown History losartan 100 mg tablet 100 mg PO DAILY 08/16/23 12/06/23 Unknown History magnesium 250 mg tablet 250 mg PO DAILY 08/16/23 12/06/23 Unknown History venlafaxine 75 mg tablet 75 mg PO DAILY 08/16/23 12/06/23 Unknown History Allergies Allergy/AdvReac Type Severity Reaction Status Date / Time hydrocodone Allergy Mild Rash Verified 09/16/24 11:28 acetaminophen Allergy rash Verified 09/16/24 11:28 Review of Systems 2 Review of Systems: All systems reviewed & are unremarkable except as noted in HPI and below PMFSH Social History Social History (Updated 12/06/23 @ 14:37 by Darcy Bajwa, [facility]) Smoking status: Never smoker Do You Feel Safe in your Home?: Yes Lack of Transportation: No Lack of Food: Never True Current Housing: I Have Housing Concerned About Future Housing: No Difficulty Paying Gas/Electric Bills: No Difficulty Paying for Meds: No Currently Unemployed: No Education: Don't Know Difficulty w/ Childcare or Family Care: No Exam 2 Narrative: APPEARANCE: Well appearing, no pain, no distress, well-nourished. HEAD: normocephalic, atraumatic. EYES: PERRLA/EOMI, conjunctivae clear. NOSE: Normal no drainage EARS:TMS clear with good light reflex. THROAT: Pharynx clear, no exudate. NECK: Supple. No adenopathy, no masses. RESPIRATORY: Airway patent, respirations nonlabored. Clear to auscultation bilaterally, no rales, rhonchi, wheezing. CARDIOVASCULAR: Regular rate and rhythm without murmurs rubs or gallops. ABDOMINAL: Soft, nontender, nondistended, normal bowel sounds MUSCULOSKELETAL: Moves all extremities. Strength/ROM intact, No edema, No calf tenderness. NEURO: Alert. Cranial nerves II through XII intact. Good gait. Good coordination SKIN: Warm, dry. Normal Color Course Vital Signs Vital signs: Vital Signs Pulse Rate 61 09/16/24 11:18 Respiratory Rate 15 09/16/24 11:18 Blood Pressure 174/92 H 09/16/24 11:18 Pulse Oximetry 100 09/16/24 11:18 Temperature 98.1 F 09/16/24 11:25 Pulse Rate 63 09/16/24 11:25 Respiratory Rate 18 09/16/24 11:25 Blood Pressure 174/92 H 09/16/24 11:25 Pulse Oximetry 100 09/16/24 11:25 Medical Decision Making [facility] Narrative Medical decision making narrative: 63-year-old female presenting to the emergency department for evaluation for vertigo symptoms. Patient was being treated with meclizine for vertigo control. Head CT was ordered to evaluate for TIA versus CVA. Cardiac workup is being performed. Patient is afebrile with no leukocytosis hemoglobin of 12.6. Of acute abnormalities on the CMP patient's troponin was negative. Patient has no elevation of proBNP. UA was negative for infection. Head CT was negative for acute cranial abnormality. Chest x-ray shows no acute cardiopulmonary abnormality. Patient's blood pressure did improve with observation alone. Patient was still having a mild headache so she was treated with Toradol for pain control. Patient was treated with meclizine for her vertigo and reports resolution her vertigo symptoms. Patient was able to ambulate in the emergency department without any issues. Differential Diagnosis Differential Diagnosis: Hypertension, CVA, TIA, vertigo, central vertigo, ear infection, anxiety, dehydration, orthostatic hypotension Vital Signs Vital Signs: Vital Signs Pulse Rate 61 09/16/24 11:18 Respiratory Rate 15 09/16/24 11:18 Blood Pressure 174/92 H 09/16/24 11:18 Pulse Oximetry 100 09/16/24 11:18 Temperature 98.1 F 09/16/24 11:25 Pulse Rate 63 09/16/24 11:25 Respiratory Rate 18 09/16/24 11:25 Blood Pressure 174/92 H 09/16/24 11:25 Pulse Oximetry 100 09/16/24 11:25 Lab Data Lab results reviewed: Yes I reviewed the patient's lab results. 09/16/24 11:45 09/16/24 11:45 Labs: Lab Results 09/16/24 09/16/24 Range/Units 11:41 11:45 WBC 6.4 (4.5-10.0) K/mm3 RBC 5.59 H (4.2-5.4) M/mm3 Hgb 12.6 (12.0-15.0) g/dL Hct 40.4 (37.0-47.0) % MCV 72.3 L (80-100) fl MCH 22.5 L (26-34) pg MCHC 31.2 L (32-36) g/dl RDW 20.8 H (11.5-14.5) % Plt Count 231 (150-375) k/mm3 MPV 10.0 (7.4-10.4) fl Immature Gran % (Auto) 0.2 (0-0.5) % Neut % (Auto) 43.3 L (45.5-73.1) % Lymph % (Auto) 44.1 (18.3-44.2) % [place] % (Auto) 8.3 (2.6-8.5) % Eos % (Auto) 3.3 (0-4.4) % Baso % (Auto) 0.8 (0.2-1.2) % Lymph # (Auto) 2.81 (0.9-3.2) K/mm3 [place] # (Auto) 0.5 (0.1-0.6) K/mm3 Eos # (Auto) 0.2 (0-0.3) K/mm3 Baso # (Auto) 0.1 (0.0-0.1) K/mm3 Abs Immat Gran (auto) 0.01 (0.00-0.031) K/mm3 Absolute Neuts (auto) 2.8 (1.3-6.7) K/mm3 Absolute Nucleated RBC 0.000 (0.0-0.012) K/mm3 Band Neutrophils % Not Reportable Nucleated RBC % 0.0 (0.0-0.2) % Platelet Estimate Adequate (Adequate) Anisocytosis 1+ Schistocytes None seen PT 13.1 (11.1-14.7) Seconds INR 1.0 APTT 25.7 (22.3-36.8) Seconds Sodium 140 (137-145) mmol/L Potassium 3.9 (3.4-5.0) mmol/L Chloride 103 (98-107) mmol/L Carbon Dioxide 29 (22-30) mmol/L Anion Gap 8 (4-12) mmol/L BUN 17 (7-17) mg/dL Creatinine 0.65 L (0.7-1.0) mg/dL Estim Creat Clear Calc 75 ml/min Estimated GFR > 60 (59 - ) Glucose 133 H (65-110) mg/dL Calcium 9.7 (8.4-10.2) mg/dL Total Bilirubin 0.6 (0.2-1.3) mg/dL AST 31 (14-36) U/L ALT 30 (6-35) U/L Alkaline Phosphatase 62 (38-126) U/L Troponin I < 0.012 (0.000-0.034) ng/mL NT-Pro-B Natriuret Pep 48 (19.9-100) pg/mL Total Protein 8.0 (6.3-8.2) g/dL Albumin 4.5 (3.5-5.1) g/dL Urine Color Yellow (Yellow) Urine Appearance Clear (Clear) Urine pH 6.5 (5.0-9.0) Ur Specific [place] 1.020 (1.001-1.035) Urine Protein Negative (Negative) mg/dL Urine Glucose (UA) Negative (Negative) mg/dL Urine Ketones Negative (Negative) mg/dL Ur Blood (Man) Negative (Negative) Urine Nitrate Negative (Negative) Urine Bilirubin Negative (Negative) Urine Urobilinogen 0.2 (<2.0) mg/dL Leukocyte Esterase Rfl Trace H (Negative) MINDY/UL Urine RBC 0-2 (0-2) /hpf Urine WBC 0-5 (0-3) /hpf Ur Squamous Epith Cells Occasional (Few) /hpf Urine Bacteria None seen /hpf Urine Casts 0-2 Imaging Data Radiologist's impression: Impressions Chest X-Ray 09/16/24 11:39 Impression: Normal chest. Head CT 09/16/24 12:28 Impression: No significant abnormality seen. ECG Data EKG #1: EKG Interpretation: normal rate, sinus rhythm, no ectopy, normal QRS, normal QT and NL axis Discharge Plan Discharge Clinical Impression: Vertigo, Hypertension Patient Disposition: Home Condition: Stable Instructions: Antibiotic Form, Vertigo (ED) Additional Instructions: Take your home medications as directed for blood pressure. Meclizine as needed for vertigo control. Have close follow-up with your primary care physician. If you have any worsening symptoms and please call or return to the emergency department. Patient Language: Malagasy Prescriptions: New meclizine 25 mg tablet 25 mg PO BID PRN (Reason: dizziness) 7 Days Qty: 14 0RF No Action levothyroxine 75 mcg capsule 75 mcg PO DAILY venlafaxine 75 mg tablet 75 mg PO DAILY magnesium 250 mg tablet 250 mg PO DAILY losartan 100 mg tablet 100 mg PO DAILY calcium-vitamin D3 250-50 mg-unit tablet PO Follow-up/Referrals: Randell,PRADEEP Dang [Primary Care Provider] - Stand Alone Forms: Work/School Release IP
[2024-09-16] MEDS: MECLIZINE HCL 25 MG TABLET PO (11:35)
[2024-09-16 11:51] LABS: Basophils Absolute Auto 0.1 K/mm3 (0.0-0.1); Basophils Percent Auto 0.8 % (0.2-1.2); Eosinophils Absolute Auto 0.2 K/mm3 (0-0.3); Eosinophils Percent Auto 3.3 % (0-4.4); Hematocrit 40.4 % (37.0-47.0); Hemoglobin 12.6 g/dL (12.0-15.0); Immature Granulocyte Absolute 0.01 K/mm3 (0.00-0.031); Immature Granulocyte Percent A 0.2 % (0-0.5); Lymphocytes Absolute Auto 2.81 K/mm3 (0.9-3.2); Lymphocytes Percent Auto 44.1 % (18.3-44.2); Mean Corpuscular HGB Conc 31.2 g/dl (32-36); Mean Corpuscular Hemoglobin 22.5 pg (26-34); Mean Corpuscular Volume 72.3 fl (80-100); Monocytes Absolute Auto 0.5 K/mm3 (0.1-0.6); Monocytes Percent Auto 8.3 % (2.6-8.5); Neutrophils Absolute Auto 2.8 K/mm3 (1.3-6.7); Neutrophils Percent Auto 43.3 % (45.5-73.1); Platelet Count Result 231 k/mm3 (150-375); Red Blood Count 5.59 M/mm3 (4.2-5.4); Red Cell Distribution Width 20.8 % (11.5-14.5); White Blood Count 6.4 K/mm3 (4.5-10.0)
[2024-09-16 11:52] LABS: Add Urine Microscopic? YES; Appearance Urine Clear (Clear); Bacteria Urine None Seen /hpf; Bilirubin Urine Negative (Negative); Blood Urine Negative (Negative); Color Urine Yellow (Yellow); Glucose Urine UA Negative (Negative); Ketones Urine Negative (Negative); Leukocyte Esterase Ur Trace LEU/UL (Negative); Nitrate Urine Negative (Negative); Non Pathogenic Casts 0-2; Protein Urine Negative (Negative); RBC Urine 0-2 /hpf (0-2); Squamous Epithelial Cell Urine Occasional /hpf (Few); Urobilinogen Urine 0.2 mg/dL (<2.0); WBC Urine 0-5 /hpf (0-3); pH Urine 6.5 (5.0-9.0)
[2024-09-16 12:00] LABS: Alanine Aminotransferase 30 U/L (6-35); Albumin Level 4.5 g/dL (3.5-5.1); Alkaline Phosphatase 62 U/L (38-126); Anion Gap 8 mmol/L (4-12); Aspartate Amino Transferase 31 U/L (14-36); Bilirubin,Total 0.6 mg/dL (0.2-1.3); Blood Urea Nitrogen 17 mg/dL (7-17); Calcium 9.7 mg/dL (8.4-10.2); Carbon Dioxide 29 mmol/L (22-30); Chloride 103 mmol/L (98-107); Estimated CRCL calculation 75 ml/min; Estimated Glomerular Filt Rate > 60; Glucose 133 mg/dL (65-110); Potassium 3.9 mmol/L (3.4-5.0); Sodium 140 mmol/L (137-145)
[2024-09-16 12:03] LABS: Partial Thromboplastin Time 25.7 Seconds (22.3-36.8); Prothrombin Time 13.1 Seconds (11.1-14.7)
[2024-09-16 12:06] LABS: Anisocytosis 1+; Platelet Estimate Adequate (Adequate); Schistocytes None Seen
[2024-09-16 12:12] LABS: NT Pro B Type Natriuretic Pept 48 pg/mL (19.9-100); Troponin I < 0.012 ng/mL (0.000-0.034)
[2024-09-16] MEDS: KETOROLAC 15 MG/ML VIAL (*BKC) IV PUSH (13:30)
== END 2024-09-16 13:35 | disposition home or self-care (01) ==
PROVIDERS: Emergency Provider Emergency Medicine; PCP Physician Assistant
DX: R42 Dizziness and giddiness (principal); I10 Essential (primary) hypertension
CPT/HCPCS: 36415; 70450; 71045; 80053; 81001; 83880; 84484; 85025; 85610; 85730; 93005; 96374; 99284; A9270; J1885